=== PATIENT | female | born 1995 | race Caucasian/White ===

== ENCOUNTER 2016-12-02 15:26 | Observation (INO) | payer OTHER ==
[2016-12-02 16:31] LABS: Basophils % (A) 0 %; CH 31.2; CHCM 34.1; Eosinophils # (A) 0.1 k/uL (0-0.7); Eosinophils % (A) 1 %; HCT 41.8 % (34.0-46.0); HDW 2.15; HGB 13.9 gm/dL (11.4-16.0); Luc % (Auto) 2; Lymphocytes # (A) 2.2 k/uL (1.0-4.8); Lymphocytes % (A) 15 %; MCH 30.5 pg (25.0-35.0); MCHC 33.2 g/dL (31.0-37.0); MCV 91.8 fL (80.0-100.0); Mean Platelet Volume 7.7; Monocytes # (A) 0.8 k/uL (0-1.0); Monocytes % (A) 5 %; Neutrophils # (A) 11.6 k/uL (1.3-7.7); Neutrophils % (A) 77 %; RBC 4.55 m/uL (3.80-5.40); RDW 13.5 % (11.5-15.5); WBC 15.1 k/uL (3.8-10.6); WBC (Perox) 15.32
[2016-12-02 16:32] LABS: Appearance,Urine Cloudy (Clear); Bacteria,Urine Rare /hpf; Bilirubin,Urine Negative (Negative); Glucose,Urine (UA) Negative (Negative); Ketones,Urine Negative (Negative); Leukocyte Esterase,Urine Large (Negative); Mucus,Urine Rare /hpf; Nitrite,Urine Negative (Negative); Particle Count 9395; Protein,Urine Trace (Negative); RBC,Urine 1 /hpf (0-5); Specific Gravity,Urine 1.018 (1.001-1.035); Squamous Epithelial Cell,Urine 8 /hpf (0-4); UA Billing (MACRO vs. MICRO) MICRO; Urobilinogen,Urine <2.0 mg/dL (<2.0); WBC,Urine 9 /hpf (0-5)
[2016-12-02] MEDS ORDERED: IV VANCOMYCIN PER PHARMACY 1 EACH MISC MISCELLANE PRN (16:33)
[2016-12-02] MEDS ORDERED: KETOROLAC 30 MG/ML 1 ML VIAL IVP STA (16:34)
[2016-12-02 16:43] LABS: ALT 79 U/L (9-52); AST 47 U/L (14-36); Alkaline Phosphatase 79 U/L (38-126); Anion Gap 11 mmol/L; Blood Urea Nitrogen 12 mg/dL (7-17); Calcium 9.3 mg/dL (8.4-10.2); Carbon Dioxide 24 mmol/L (22-30); Chloride 106 mmol/L (98-107); Glucose 77 mg/dL (74-99); Non-African American GFR(MDRD) >60 (>60 ml/min/1.73 sqM); Potassium 4.3 mmol/L (3.5-5.1); Sodium 141 mmol/L (137-145); Total Bilirubin 0.9 mg/dL (0.2-1.3); Total Protein 7.8 g/dL (6.3-8.2)
[2016-12-02] MEDS ORDERED: VANCOMYCIN 1,500 MG in SODIUM CHLORIDE 0.9% 250 ML IVPB ONE (17:00)
[2016-12-02] MEDS ORDERED: ONDANSETRON 4 MG/2 ML VIAL IVP PRN (17:02)
[2016-12-02] MEDS ORDERED: NALOXONE 0.4 MG/ML 1 ML VIAL IV PRN (17:02)
[2016-12-02] MEDS ORDERED: MORPHINE SULFATE 4 MG/ML SYRINGE IV PRN (17:02)
[2016-12-02] MEDS ORDERED: KETOROLAC 30 MG/ML 1 ML VIAL IVP PRN (17:02)
--- NOTE | 2016-12-02 17:33 | XR ---
EXAMINATION TYPE: XR knee complete LT DATE OF EXAM: 12/02/2016 COMPARISON: NONE HISTORY: 21-year-old female left knee pain. Open wound, patient stated MRSA. TECHNIQUE: 3 views FINDINGS: There is some anterior soft tissue swelling noted. There may be some trace soft tissue swelling proje cting above the patella on the lateral view. No significant knee joint effusion identified. No acute fracture or dislocation. IMPRESSION: 1. No acute osseous abnormality seen. 2. Anterior soft tissue swelling and trace foci of soft tissue gas projecting above the patella. This could represent tracking air from the patient's open wound or infection with gas-forming organism. C linically correlate.
[2016-12-02] MEDS: DEXTROSE 5%-0.45% NACL 1,000 ML IV SCH (17:41)
--- NOTE | 2016-12-02 17:46 | ED ---
General Adult HPI - General Chief complaint: Skin/Abscess/Foreign Body Stated complaint: MERSA Time Seen by Provider: 12/02/16 15:44 Source: patient, RN notes reviewed Mode of arrival: ambulatory Limitations: no limitations - History of Present Illness Initial comments: 21-year-old female presents for evaluation of left knee pain and swelling. Patient had a small abscess on the anterior portion of her left knee that has been present for approximately 4-5 days. She was started on Bactrim by her family physician for this abscess. Patient states despite being on antibiotics the pain has worsened and she now has difficulty moving her left knee. There is also some associated erythema on the medial side of her knee which she did not notice prior to today. 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 She denies fever. Reports some subjective chills, denies chest pain shortness of breath, denies nausea vomiting or diarrhea. - Related Data Home Medications Medication Instructions Recorded Confirmed Sulfamethox-Tmp 800-160Mg [Bactrim 1 tab PO Q12HR 12/02/16 12/02/16 DS 800-160 mg] Allergies Allergy/AdvReac Type Severity Reaction Status Date / Time strawberry [[place]] Allergy Anaphylaxis Verified 12/02/16 15:36 Review of Systems ROS Statement: Those systems with pertinent positive or pertinent negative responses have been documented in the HPI. ROS Other: All systems not noted in ROS Statement are negative. Past Medical History Past Medical History: No Reported History Additional Past Medical History / Comment(s): ovarian cyst History of Any Multi-Drug Resistant Organisms: MRSA Date of last positivie culture/infection: 2008 MDRO Source:: left knee Past Surgical History: Orthopedic Surgery Past Anesthesia/Blood Transfusion Reactions: No Reported Reaction Past Psychological History: No Psychological Hx Reported Smoking Status: Never smoker Past Alcohol Use History: None Reported Past Drug Use History: None Reported - Past Family History Father Family Medical History: Hypertension General Exam Limitations: no limitations General appearance: in no apparent distress Head exam: Present: atraumatic, normocephalic Eye exam: Present: normal appearance, PERRL ENT exam: Present: normal exam, mucous membranes moist Neck exam: Present: normal inspection. Absent: tenderness, meningismus Respiratory exam: Present: normal lung sounds bilaterally. Absent: respiratory distress Cardiovascular Exam: Present: regular rate, normal rhythm GI/Abdominal exam: Present: soft. Absent: distended, tenderness Extremities exam: Present: normal capillary refill, other (Erythema on the medial side of the left knee, there is a small abscess which is to have drained on the anterior knee. Joint effusion is present, there is significant decreased range of motion secondary to pain left knee.) Course Vital Signs 12/02/16 15:29 Temperature 97.5 F L Pulse Rate 94 Respiratory 20 Rate Blood Pressure 125/64 O2 Sat by Pulse 98 Oximetry Procedures - Joint Aspiration/Injection Consent Obtained: verbal consent Time Out Performed: Yes Indications: R/O septic arthritis Side of Body: left Joint Aspirated: knee Ultrasound Guidance: No Skin Prep: sterile prep and drape Local Anesthesia Used: Lidocaine 1% Needle Size Used: 18G Syringe Size Used: 20cc Fluid Obtained: viscous Patient Tolerated Procedure: well Complications: other (Unable to obtain significant fluid for analysis) Medical Decision Making - Medical Decision Making 21-year-old female presents with left knee swelling and erythema, she does have a superficial abscess over this me, however there is significant pain on range of motion of left knee. She does have a history of septic arthritis. Joint aspiration was attempted to the emergency department. This was unsuccess unsuccessful. Patient had significant pain with the procedure. She was started on antibiotics including ceftriaxone and vancomycin. Case was discussed with orthopedic surgery. She will be admitted to internal medicine with orthopedic surgery on consult. Laboratory studies reveal an elevated white blood cell count of 15 X-ray of the left knee does show air above the patella, this is consistent with the location of her draining abscess. Diagnosis: left knee swelling rule out septic arthritis. - Lab Data Result diagrams: 12/02/16 16:14 12/02/16 16:14 Lab Results 12/02/16 12/02/16 12/02/16 Range/Units 16:14 16:14 16:14 WBC 15.1 H (3.8-10.6) k/uL RBC 4.55 (3.80-5.40) m/uL Hgb 13.9 (11.4-16.0) gm/dL Hct 41.8 (34.0-46.0) % MCV 91.8 (80.0-100.0) fL MCH 30.5 (25.0-35.0) pg MCHC 33.2 (31.0-37.0) g/dL RDW 13.5 (11.5-15.5) % Plt Count 281 (150-450) k/uL Neutrophils % 77 % Lymphocytes % 15 % Monocytes % 5 % Eosinophils % 1 % Basophils % 0 % Neutrophils # 11.6 H (1.3-7.7) k/uL Lymphocytes # 2.2 (1.0-4.8) k/uL Monocytes # 0.8 (0-1.0) k/uL Eosinophils # 0.1 (0-0.7) k/uL Basophils # 0.0 (0-0.2) k/uL Sodium 141 (137-145) mmol/L Potassium 4.3 (3.5-5.1) mmol/L Chloride 106 (98-107) mmol/L Carbon Dioxide 24 (22-30) mmol/L Anion Gap 11 mmol/L BUN 12 (7-17) mg/dL Creatinine 0.69 (0.52-1.04) mg/dL Est GFR (MDRD) Af Amer >60 (>60 ml/min/1.73 sqM) Est GFR (MDRD) Non-Af >60 (>60 ml/min/1.73 sqM) Glucose 77 (74-99) mg/dL Calcium 9.3 (8.4-10.2) mg/dL Total Bilirubin 0.9 (0.2-1.3) mg/dL AST 47 H (14-36) U/L ALT 79 H (9-52) U/L Alkaline Phosphatase 79 (38-126) U/L Total Protein 7.8 (6.3-8.2) g/dL Albumin 4.5 (3.5-5.0) g/dL Urine Color Urine Appearance (Clear) Urine pH (5.0-8.0) Ur Specific [place] (1.001-1.035) Urine Protein (Negative) Urine Glucose (UA) (Negative) Urine Ketones (Negative) Urine Blood (Negative) Urine Nitrite (Negative) Urine Bilirubin (Negative) Urine Urobilinogen (<2.0) mg/dL Ur Leukocyte Esterase (Negative) Urine RBC (0-5) /hpf Urine WBC (0-5) /hpf Ur Squamous Epith Cells (0-4) /hpf Urine Bacteria (None) /hpf Urine Mucus (None) /hpf Urine HCG, Qual Not Detected (Not Detectd) 12/02/16 Range/Units 16:14 WBC (3.8-10.6) k/uL RBC (3.80-5.40) m/uL Hgb (11.4-16.0) gm/dL Hct (34.0-46.0) % MCV (80.0-100.0) fL MCH (25.0-35.0) pg MCHC (31.0-37.0) g/dL RDW (11.5-15.5) % Plt Count (150-450) k/uL Neutrophils % % Lymphocytes % % Monocytes % % Eosinophils % % Basophils % % Neutrophils # (1.3-7.7) k/uL Lymphocytes # (1.0-4.8) k/uL Monocytes # (0-1.0) k/uL Eosinophils # (0-0.7) k/uL Basophils # (0-0.2) k/uL Sodium (137-145) mmol/L Potassium (3.5-5.1) mmol/L Chloride (98-107) mmol/L Carbon Dioxide (22-30) mmol/L Anion Gap mmol/L BUN (7-17) mg/dL Creatinine (0.52-1.04) mg/dL Est GFR (MDRD) Af Amer (>60 ml/min/1.73 sqM) Est GFR (MDRD) Non-Af (>60 ml/min/1.73 sqM) Glucose (74-99) mg/dL Calcium (8.4-10.2) mg/dL Total Bilirubin (0.2-1.3) mg/dL AST (14-36) U/L ALT (9-52) U/L Alkaline Phosphatase (38-126) U/L Total Protein (6.3-8.2) g/dL Albumin (3.5-5.0) g/dL Urine Color Yellow Urine Appearance Cloudy H (Clear) Urine pH 8.0 (5.0-8.0) Ur Specific [place] 1.018 (1.001-1.035) Urine Protein Trace H (Negative) Urine Glucose (UA) Negative (Negative) Urine Ketones Negative (Negative) Urine Blood Negative (Negative) Urine Nitrite Negative (Negative) Urine Bilirubin Negative (Negative) Urine Urobilinogen <2.0 (<2.0) mg/dL Ur Leukocyte Esterase Large H (Negative) Urine RBC 1 (0-5) /hpf Urine WBC 9 H (0-5) /hpf Ur Squamous Epith Cells 8 H (0-4) /hpf Urine Bacteria Rare H (None) /hpf Urine Mucus Rare H (None) /hpf Urine HCG, Qual (Not Detectd) Disposition Clinical Impression: Septic arthritis Disposition: ADMITTED IP TO THIS HOSP Condition: Stable Decision to Admit Reason: Admit from EC Decision Date: 12/02/16 Decision Time: 17:00
[2016-12-03] MEDS: VANCOMYCIN 1,250 MG in SODIUM CHLORIDE 0.9% 250 ML IVPB SCH ×3 (00:21→15:27)
[2016-12-03] MEDS: DEXTROSE 5%-0.45% NACL 1,000 ML IV SCH ×3 (04:16→23:30)
[2016-12-03 06:56] LABS: Basophils % (A) 0 %; CH 31.1; CHCM 33.4; Eosinophils # (A) 0.2 k/uL (0-0.7); Eosinophils % (A) 2 %; HCT 39.2 % (34.0-46.0); HDW 2.16; Luc # (Auto) 0.21; Luc % (Auto) 2; Lymphocytes # (A) 2.3 k/uL (1.0-4.8); Lymphocytes % (A) 24 %; MCH 31.1 pg (25.0-35.0); MCHC 33.3 g/dL (31.0-37.0); MCV 93.6 fL (80.0-100.0); Mean Platelet Volume 7.9; Monocytes # (A) 0.5 k/uL (0-1.0); Monocytes % (A) 5 %; Neutrophils # (A) 6.5 k/uL (1.3-7.7); Neutrophils % (A) 67 %; RBC 4.19 m/uL (3.80-5.40); RDW 13.3 % (11.5-15.5); WBC 9.8 k/uL (3.8-10.6); WBC (Perox) 9.59
[2016-12-03 07:07] LABS: Anion Gap 9 mmol/L; Blood Urea Nitrogen 14 mg/dL (7-17); Calcium 8.4 mg/dL (8.4-10.2); Carbon Dioxide 21 mmol/L (22-30); Chloride 111 mmol/L (98-107); Glucose 90 mg/dL (74-99); Non-African American GFR(MDRD) >60 (>60 ml/min/1.73 sqM); Potassium 3.9 mmol/L (3.5-5.1); Sodium 141 mmol/L (137-145)
--- NOTE | 2016-12-03 08:51 | P.CNOR ---
History of Present Illness - [facility] Consult date: 12/03/16 Requesting physician: Dmitri Song Consult reason: joint pain (Septic arthritis of the left knee) History of present illness: Patient is a very pleasant 21-year-old female who is seen and examined at the bedside for further evaluation after we were consulted for left knee pain and swelling that the ER thought could represent a septic left knee. Patient does have a history of previous left knee septic joint and history of MRSA infection of the left knee. Emergency department aspiration of the joint was attempted without success. Patient was subsequently admitted and started on IV antibiotics including vancomycin and ceftriaxone. Since that time, patient had significant improvement of her left knee symptoms. She states this past Saturday and Saturday she started experiencing left knee swelling, redness, and pain. Over the course of next several days her symptoms worsened until she presented to the emergency department yesterday. She states since being started on IV antibiotics her left knee symptoms have almost returned to her baseline. She is not currently experiencing any significant knee pain, swelling, or erythema. She is active full range of motion left knee without difficulty. At this time she does not feel she needs any further treatment for her left knee. She has no new complaints. Patient currently denies any nausea, vomiting, fever, or chills. Past Medical History Past Medical History: No Reported History Additional Past Medical History / Comment(s): ovarian cyst History of Any Multi-Drug Resistant Organisms: MRSA Year Discovered:: 2008 MDRO Source:: left knee Past Surgical History: Orthopedic Surgery Additional Past Surgical History / Comment(s): Left knee Past Anesthesia/Blood Transfusion Reactions: No Reported Reaction Past Psychological History: No Psychological Hx Reported Smoking Status: Current every day smoker Past Alcohol Use History: Occasional Past Drug Use History: None Reported - Past Family History Father Family Medical History: Hyperlipidemia, Hypertension Mother Family Medical History: No Reported History Medications and Allergies Home Medications Medication Instructions Recorded Confirmed Type Sulfamethox-Tmp 800-160Mg [Bactrim 1 tab PO Q12HR 12/02/16 12/02/16 History DS 800-160 mg] Allergies Allergy/AdvReac Type Severity Reaction Status Date / Time strawberry [[place]] Allergy Anaphylaxis Verified 12/02/16 20:53 Physical Examination Physical Exam: Patient is awake, alert, and oriented 3 Vital signs stable Good chest excursion with deep inspiration and expiration Abdomen soft nontender No signs or symptoms of DVT; no calf pain Examination of the left knee shows no obvious sign of significant swelling, erythema, or obvious sign of infection There is a small healing puncture wound from [place] in the emergency department the does have some erythema around this wound No significant pain to palpation of the left lower thigh, knee, calf, foot, or toes Adequate for range of motion of the entire left lower extremity without significant difficulty Results Pertinent studies: X-ray of the left knee taken on 12/02/2016: No acute osseous abnormality seen; anterior soft tissue swelling and trace foci of soft tissue gas projecting above the patella could her present tracking for the patient's open wound or infection with gas forming organism - Labs Labs: Abnormal Lab Results - Last 24 Hours (Table) 12/02/16 12/02/16 12/02/16 Range/Units 16:14 16:14 16:14 WBC 15.1 H (3.8-10.6) k/uL Neutrophils # 11.6 H (1.3-7.7) k/uL Chloride (98-107) mmol/L Carbon Dioxide (22-30) mmol/L AST 47 H (14-36) U/L ALT 79 H (9-52) U/L Urine Appearance Cloudy H (Clear) Urine Protein Trace H (Negative) Ur Leukocyte Esterase Large H (Negative) Urine WBC 9 H (0-5) /hpf Ur Squamous Epith Cells 8 H (0-4) /hpf Urine Bacteria Rare H (None) /hpf Urine Mucus Rare H (None) /hpf 12/03/16 Range/Units 06:36 WBC (3.8-10.6) k/uL Neutrophils # (1.3-7.7) k/uL Chloride 111 H (98-107) mmol/L Carbon Dioxide 21 L (22-30) mmol/L AST (14-36) U/L ALT (9-52) U/L Urine Appearance (Clear) Urine Protein (Negative) Ur Leukocyte Esterase (Negative) Urine WBC (0-5) /hpf Ur Squamous Epith Cells (0-4) /hpf Urine Bacteria (None) /hpf Urine Mucus (None) /hpf H & H 12/02/16 12/03/16 Range/Units 16:14 06:36 Hgb 13.9 13.0 (11.4-16.0) gm/dL Hct 41.8 39.2 (34.0-46.0) % Result Diagrams: 12/03/16 06:36 12/03/16 06:36 Assessment and Plan (1) Knee pain, left Status: Acute (2) Septic arthritis Status: Acute Plan: Assessment: Left knee pain and swelling Septic arthritis of the left knee Plan: 1. After reviewing imaging, further evaluation of the patient, and discussed with the patient, we're not currently planning for any surgical intervention or other imaging modalities in terms of the patient's left knee. At presentation to the emergency department she had significant left knee pain, erythema, and swelling at which time emergency department felt she may have septic arthritis in the left knee. Following admittance and start an IV antibiotic medication, these symptoms have dramatically improved. She is not currently experiencing significant swelling, erythema, warmth, or pain at the left knee. She has active full range of motion left knee without significant difficulty. She has no pain with palpation of the left knee. She is afebrile. She is not currently experiencing nausea, vomiting, or chills. At this time, we discussed we'll continue with conservative treatment. She may continue with IV antibiotic regimen as set forth by medicine and the emergency department. From an orthopedic standpoint, we'll currently plan to sign off on the patient and she will be clear for discharge. We will plan to have the patient follow-up in the outpatient setting approximately 1 week for reevaluation. 2. Medicine to continue following the patient 3. From an orthopedic standpoint, patient is cleared for discharge. Patient may follow-up with Jefe Renteria PA-C or Dr. Ga Lancaster at [facility] in approximately 1 week for further evaluation 4. I will discuss this patient in detail with Dr. Ga Lancaster Time with Patient: Less than 30
--- NOTE | 2016-12-03 11:19 | P.HPIM ---
History of Present Illness H&P Date: 12/03/16 Chief Complaint: Left knee swelling and pain This is a 21-year-old female who presents to the emergency room with worsening left knee pain and swelling. Patient said that her symptoms started approximately a week ago with a lump on her left knee that was treated by her primary care physician with Bactrim. Apparently her symptoms continued to get worse despite antibiotic treatment and the redness and swelling worsen so she decided to come to the emergency room. In the emergency room patient was evaluated and was admitted to the hospital with suspected septic arthritis. 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 She was started on broad-spectrum antibiotic and apparently her symptoms improved significantly. Today, her knee appeared completely normal to me. She has full range of motion. She was seen and evaluated by orthopedic surgery and was cleared for discharge. She had one set of blood culture positive for gram-positive bacilli that is most likely contamination. I would obtain 2 sets of blood culture today. I will consult infectious disease for further recommendations. Review of Systems Review of system: 14 points review of systems were obtained and were negative except to what were mentioned in the HPI. Past Medical History Past Medical History: No Reported History Additional Past Medical History / Comment(s): ovarian cyst History of Any Multi-Drug Resistant Organisms: MRSA Date of last positivie culture/infection: 2008 MDRO Source:: left knee Past Surgical History: Orthopedic Surgery Additional Past Surgical History / Comment(s): Left knee Past Anesthesia/Blood Transfusion Reactions: No Reported Reaction Past Psychological History: No Psychological Hx Reported Smoking Status: Current every day smoker Past Alcohol Use History: Occasional Past Drug Use History: None Reported - Past Family History Father Family Medical History: Hyperlipidemia, Hypertension Mother Family Medical History: No Reported History Medications and Allergies Home Medications Medication Instructions Recorded Confirmed Type Sulfamethox-Tmp 800-160Mg [Bactrim 1 tab PO Q12HR 12/02/16 12/02/16 History DS 800-160 mg] Allergies Allergy/AdvReac Type Severity Reaction Status Date / Time strawberry [[place]] Allergy Anaphylaxis Verified 12/02/16 20:53 Physical Exam Vitals: Vital Signs Temp Pulse Pulse Resp BP BP Pulse Ox 12/03/16 08:00 97.9 F 70 16 111/58 98 12/03/16 01:57 98.3 F 73 16 93/46 97 12/02/16 19:33 98.0 F 82 16 112/59 98 12/02/16 18:24 98 F 85 18 106/63 97 12/02/16 17:42 78 18 108/56 100 12/02/16 15:29 97.5 F L 94 20 125/64 98 Intake and Output 12/02/16 12/03/16 12/03/16 22:59 06:59 14:59 Intake Total 800 800 Balance 800 800 Intake: Intake, IV Titration 550 800 Amount Dextrose 5%-0.45% NaCl 1, 300 550 000 ml @ 100 mls/hr IV . Q10H MARGARET Rx#:[id number] Vancomycin 1,250 mg In 250 Sodium Chloride 0.9% 250 ml @ 125 mls/hr IVPB Q8H MARGARET Rx#:[id number] Vancomycin 1,500 mg In 250 Sodium Chloride 0.9% 250 ml @ 125 mls/hr IVPB ONCE ONE Rx#:[id number] Oral 250 Other: # Voids 4 Weight 63.049 kg General: The patient is awake and alert, in no distress Eye: there is normal conjunctiva bilaterally. Neck: The neck is supple, there is no JVD. Cardiovascular: Normal S1-S2, no S3-S4, no murmurs. Respiratory: Lungs clear to auscultation bilaterally Gastrointestinal: Abdomen is soft, nontender Musculoskeletal: There is no pedal edema. Neurological:. Speech is normal. Skin: Skin is warm and dry Results CBC & Chem 7: 12/03/16 06:36 12/03/16 06:36 Labs: Abnormal Lab Results - Last 24 Hours (Table) 12/02/16 12/02/16 12/02/16 Range/Units 16:14 16:14 16:14 WBC 15.1 H (3.8-10.6) k/uL Neutrophils # 11.6 H (1.3-7.7) k/uL Chloride (98-107) mmol/L Carbon Dioxide (22-30) mmol/L AST 47 H (14-36) U/L ALT 79 H (9-52) U/L Urine Appearance Cloudy H (Clear) Urine Protein Trace H (Negative) Ur Leukocyte Esterase Large H (Negative) Urine WBC 9 H (0-5) /hpf Ur Squamous Epith Cells 8 H (0-4) /hpf Urine Bacteria Rare H (None) /hpf Urine Mucus Rare H (None) /hpf 12/03/16 Range/Units 06:36 WBC (3.8-10.6) k/uL Neutrophils # (1.3-7.7) k/uL Chloride 111 H (98-107) mmol/L Carbon Dioxide 21 L (22-30) mmol/L AST (14-36) U/L ALT (9-52) U/L Urine Appearance (Clear) Urine Protein (Negative) Ur Leukocyte Esterase (Negative) Urine WBC (0-5) /hpf Ur Squamous Epith Cells (0-4) /hpf Urine Bacteria (None) /hpf Urine Mucus (None) /hpf Microbiology - Last 24 Hours (Table) 12/02/16 16:14 Blood Culture Gram Stain - Preliminary Blood 12/02/16 16:14 Blood Culture - Final Blood Thrombosis Risk Factor Assmnt - Choose All That Apply Any of the Below Risk Factors Present?: Yes Each Factor Represents 1 point: Swollen legs (current) Other Risk Factors: No Thrombosis Risk Factor Assessment Total Risk Factor Score: 1 Thrombosis Risk Factor Assessment Level: Low Risk Assessment and Plan Plan: 1. Cellulitis of the left knee 2. Bacteremia with gram-positive bacillary possibly contamination. Awaiting repeat blood culture. Continue broad spectrum antibiotic. Consult infectious disease for further recommendations. Today, I reviewed her medication list and lab work results. Continue current regimen area that this be discharged home within the next day or 2.
--- NOTE | 2016-12-03 20:30 | P.CONS ---
History of Present Illness - Reason for Consult Consult date: 12/03/16 - Chief Complaint Pain left knee - History of Present Illness Pleasant 21-year-old female who relates to history of prior MRSA abscess of the anterior aspect of the left knee presents the emergency center with sudden onset of increasing severe pain to her left knee. The patient relates she developed a pustule on the knee. He become much more swollen painful and erythematous. She was seen in the outpatient setting was thought to have MRSA. She relates she was treated with Bactrim. Despite this she had marked worsening to the pain and swelling of the knee. She has severe pain upon any attempts for range of motion. Because of this she did present to hospital. She's been seen by orthopedics. Aspiration of joint was attempted but was a dry tap. Subsequently the area spontaneously opened and drained and the patient now has near resolution of her symptoms. Pain and swelling have improved. She's able to ambulate. She is denying significant fevers, chills or rigors. Review of Systems HEENT:Denies headache or acute visual change. Denies sinus or mouth discomforts. Denies neck stiffness or pain. Denies significant oral cavity pain. Denies difficulty on swallowing. Lungs: Denies significant shortness of breath, cough, sputum production, or hemoptysis. Cardiovascular: Denies significant shortness of breath, chest pain, chest wall pain, orthopnea, dyspnea on exertion, syncope Gastrointestinal:Denies nausea, vomiting, diarrhea, constipation, hematemesis, melena, hematochezia. No no significant change of bowel habit noticed. Musculoskeletal: Per the HPI Skin: Denies new rash or lesions. No new ulcers or wounds are related.. Neuro: Denies headache or visual change. Denies any new onset weakness or difficulty with ambulation. Denies falls or seizures. Psychiatric:Denies anxiety or depression. Endocrine: Denies significant fatigue, denies significant weight loss or weight gain. Past Medical History Past Medical History: No Reported History Additional Past Medical History / Comment(s): ovarian cyst History of Any Multi-Drug Resistant Organisms: MRSA Year Discovered:: 2008 MDRO Source:: left knee Past Surgical History: Orthopedic Surgery Additional Past Surgical History / Comment(s): Left knee Past Anesthesia/Blood Transfusion Reactions: No Reported Reaction Past Psychological History: No Psychological Hx Reported Additional Psychological History / Comment(s): Single mother of 2 ages 1 and 3. Tobacco smoker. 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 No international travel. experience. No animals in the home Smoking Status: Current every day smoker Past Alcohol Use History: Occasional Past Drug Use History: None Reported - Past Family History Father Family Medical History: Hyperlipidemia, Hypertension Mother Family Medical History: No Reported History Medications and Allergies Home Medications and Allergies Comment(s): Current Medications Ceftriaxone Sodium 1,000 mg/ (Sodium Chloride) 50 mls @ 100 mls/hr IVPB Q24HR [facility] Last Admin: 12/03/16 07:59 Dose: 100 mls/hr Dextrose/Sodium Chloride (Dextrose 5%-1/2ns Iv Soln) 1,000 mls @ 100 mls/hr IV .Q10H [facility] Last Admin: 12/03/16 15:26 Dose: 100 mls/hr Vancomycin HCl 1,250 mg/ (Sodium Chloride) 250 mls @ 125 mls/hr IVPB Q8H [facility] Last Admin: 12/03/16 15:27 Dose: 125 mls/hr Ketorolac Tromethamine (Toradol) 30 mg IVP Q6HR PRN PRN Reason: Moderate Pain Stop: 12/07/16 17:03 Miscellaneous Information (Vancomycin Trough Due) 0 each MISCELLANE DIRECTED ONE Stop: 12/04/16 07:01 Morphine Sulfate (Morphine Sulfate (Inj)) 4 mg IV Q4HR PRN PRN Reason: Severe Pain Naloxone HCl (Narcan) 0.2 mg IV Q2M PRN PRN Reason: Opioid Reversal Ondansetron HCl (Zofran) 4 mg IVP Q8HR PRN PRN Reason: Nausea And Vomiting Home Medications Medication Instructions Recorded Confirmed Type Sulfamethox-Tmp 800-160Mg [Bactrim 1 tab PO Q12HR 12/02/16 12/02/16 History DS 800-160 mg] Allergies Allergy/AdvReac Type Severity Reaction Status Date / Time strawberry [[place]] Allergy Anaphylaxis Verified 12/02/16 20:53 Physical Exam Vitals: Vital Signs Temp Pulse Resp BP Pulse Ox 12/03/16 13:53 97.8 F 72 16 91/50 93 L 12/03/16 08:00 97.9 F 70 16 111/58 98 12/03/16 01:57 98.3 F 73 16 93/46 97 Intake and Output 12/03/16 12/03/16 12/03/16 06:59 14:59 22:59 Intake Total 800 480 480 Balance 800 480 480 Intake: Intake, IV Titration 800 Amount Dextrose 5%-0.45% NaCl 1, 550 000 ml @ 100 mls/hr IV . Q10H [facility] Rx#:[id number] Vancomycin 1,500 mg In 250 Sodium Chloride 0.9% 250 ml @ 125 mls/hr IVPB ONCE ONE Rx#:[id number] Oral 480 480 Other: # Voids 4 Pleasant 21-year-old female who is quite comfortable at this time HEENT: Anicteric conjunctiva are pink and moist nasal mucosa grossly intact without significant lesions, there is no thrush. Neck: The neck is supple without significant lymphadenopathy or thyromegaly. Lungs: Good bilateral air entry without significant crackles or wheezing. There is no significant bronchial sounds. There is no egophony or dullness. Heart: Regular rate and rhythm with an audible S1-S2, no S3 no S4. There is no significant murmur click or rub, PMI was nondisplaced. Abdomen: Positive bowel sounds soft and nontender without palpable masses or organomegaly. There was no guarding or rebound. Extremities: The upper extremities have excellent pulses they are symmetric, no significant petechiae or telangiectasia. No splinter hemorrhages were noted. The right lower extremity has no lesions. The left lower extremity reveals that the knee site of the pustule that has now drained. There is no further expressible drainage. The patient relates that it was very large and swollen this is now improved since it has spontaneously drained. There is some minimal surrounding erythema. There is no expressible purulence and manipulation is not tender. She has full range of motion of the knee. No other skin lesions are seen. No abnormal lymph nodes are noted inguinal area or epitrochlear axillary Neuro: Awake alert oriented to person place and time. There are no acute new gross focal sensory motor deficits. Results CBC & Chem 7: 12/03/16 06:36 12/03/16 06:36 Labs: Abnormal Lab Results - Last 24 Hours (Table) 12/03/16 Range/Units 06:36 Chloride 111 H (98-107) mmol/L Carbon Dioxide 21 L (22-30) mmol/L Microbiology - Last 24 Hours (Table) 12/02/16 16:14 Blood Culture Gram Stain - Preliminary Blood 12/02/16 16:14 Blood Culture - Final Blood Laboratory Results WBC 9.8 k/uL (3.8-10.6) 12/03/16 06:36 RBC 4.19 m/uL (3.80-5.40) 12/03/16 06:36 Hgb 13.0 gm/dL (11.4-16.0) 12/03/16 06:36 Hct 39.2 % (34.0-46.0) 12/03/16 06:36 MCV 93.6 fL (80.0-100.0) 12/03/16 06:36 MCH 31.1 pg (25.0-35.0) 12/03/16 06:36 MCHC 33.3 g/dL (31.0-37.0) 12/03/16 06:36 RDW 13.3 % (11.5-15.5) 12/03/16 06:36 Plt Count 214 k/uL (150-450) 12/03/16 06:36 Neutrophils % 67 % 12/03/16 06:36 Lymphocytes % 24 % 12/03/16 06:36 Monocytes % 5 % 12/03/16 06:36 Eosinophils % 2 % 12/03/16 06:36 Basophils % 0 % 12/03/16 06:36 Neutrophils # 6.5 k/uL (1.3-7.7) 12/03/16 06:36 Lymphocytes # 2.3 k/uL (1.0-4.8) 12/03/16 06:36 Monocytes # 0.5 k/uL (0-1.0) 12/03/16 06:36 Eosinophils # 0.2 k/uL (0-0.7) 12/03/16 06:36 Basophils # 0.0 k/uL (0-0.2) 12/03/16 06:36 Sodium 141 mmol/L (137-145) 12/03/16 06:36 Potassium 3.9 mmol/L (3.5-5.1) 12/03/16 06:36 Chloride 111 mmol/L (98-107) H 12/03/16 06:36 Carbon Dioxide 21 mmol/L (22-30) L 12/03/16 06:36 Anion Gap 9 mmol/L 12/03/16 06:36 BUN 14 mg/dL (7-17) 12/03/16 06:36 Creatinine 0.67 mg/dL (0.52-1.04) 12/03/16 06:36 Est GFR (MDRD) Af Amer >60 (>60 ml/min/1.73 sqM) 12/03/16 06:36 Est GFR (MDRD) Non-Af >60 (>60 ml/min/1.73 sqM) 12/03/16 06:36 Glucose 90 mg/dL (74-99) 12/03/16 06:36 Calcium 8.4 mg/dL (8.4-10.2) 12/03/16 06:36 Total Bilirubin 0.9 mg/dL (0.2-1.3) 12/02/16 16:14 AST 47 U/L (14-36) H 12/02/16 16:14 ALT 79 U/L (9-52) H 12/02/16 16:14 Alkaline Phosphatase 79 U/L (38-126) 12/02/16 16:14 Total Protein 7.8 g/dL (6.3-8.2) 12/02/16 16:14 Albumin 4.5 g/dL (3.5-5.0) 12/02/16 16:14 Urine Color Yellow 12/02/16 16:14 Urine Appearance Cloudy (Clear) H 12/02/16 16:14 Urine pH 8.0 (5.0-8.0) 12/02/16 16:14 Ur Specific [place] 1.018 (1.001-1.035) 12/02/16 16:14 Urine Protein Trace (Negative) H 12/02/16 16:14 Urine Glucose (UA) Negative (Negative) 12/02/16 16:14 Urine Ketones Negative (Negative) 12/02/16 16:14 Urine Blood Negative (Negative) 12/02/16 16:14 Urine Nitrite Negative (Negative) 12/02/16 16:14 Urine Bilirubin Negative (Negative) 12/02/16 16:14 Urine Urobilinogen <2.0 mg/dL (<2.0) 12/02/16 16:14 Ur Leukocyte Esterase Large (Negative) H 12/02/16 16:14 Urine RBC 1 /hpf (0-5) 12/02/16 16:14 Urine WBC 9 /hpf (0-5) H 12/02/16 16:14 Ur Squamous Epith Cells 8 /hpf (0-4) H 12/02/16 16:14 Urine Bacteria Rare /hpf (None) H 12/02/16 16:14 Urine Mucus Rare /hpf (None) H 12/02/16 16:14 Urine HCG, Qual Not Detected (Not Detectd) 12/02/16 16:14 Microbiology 12/02/16 16:14 Blood Blood Culture Gram Stain - Preliminary 12/02/16 16:14 Blood Blood Culture - Final Assessment and Plan (1) MRSA (methicillin resistant Staphylococcus aureus) infection Narrative/Plan: Pleasant 21-year-old woman presents to hospital with increasing pain and swelling to the left knee anterior surface. She has a prior history of an abscess to her left knee that did require a surgical incision and drainage. Because the significant pain and difficulty with ambulation she was concerned and presented. She had been cared for in the outpatient setting and was on Bactrim without resolution of the infection. However she's now had spontaneous drainage and feels considerably better. However to admission she had a significant leukocytosis and cultures were obtained. The blood cultures from the emergency center showing evidence of gram-positive bacilli. At this time this is highly likely to be contamination with corynebacterium and will not need ongoing intravenous antibiotic therapy. This data should be ready in the morning. Check she has had a significant and rapid response to the drainage and then antibiotic therapy. With a history of MRSA would complete her course of Bactrim at home. Local wound care with mupirocin as indicated. Status: Acute (2) Abscess of left knee Status: Acute (3) Leukocytosis Status: Acute
[2016-12-04 01:26] VITALS: PULSE 76
[2016-12-04] MEDS ORDERED: VANCOMYCIN TROUGH DUE 1 EACH MISC MISCELLANE ONE (07:00)
[2016-12-04 07:42] LABS: Anion Gap 9 mmol/L; Blood Urea Nitrogen 12 mg/dL (7-17); Calcium 8.5 mg/dL (8.4-10.2); Carbon Dioxide 19 mmol/L (22-30); Chloride 112 mmol/L (98-107); Glucose 99 mg/dL (74-99); Non-African American GFR(MDRD) >60 (>60 ml/min/1.73 sqM); Potassium 3.9 mmol/L (3.5-5.1); Sodium 140 mmol/L (137-145)
[2016-12-04 08:45] VITALS: BP 109/57; RESP 14; TEMP 97.8
--- NOTE | 2016-12-04 08:47 | P.PN ---
Progress Note - Text Patient is a very pleasant 21-year-old female who is seen and examined at bedside for follow-up evaluation of her left knee. Cultures taken emergency department did show evidence of gram-positive bacilli. Patient is being seen and examined by Dr. Figueroa in infectious disease. We were initially consulted for possible septic arthritis of the left knee. Since this admittance, she has continued to have significant improvement of her symptoms. She is not currently experiencing any significant left knee pain, swelling, warmth, or erythema. She continues to have a little bit of redness around the wound puncture site from attempted aspiration site in the Emergency department. Her leukocytosis has improved. Her current WBC is 9.8. She has no new complaints this morning and is hoping to be discharged home soon. She has been able to ambulate without difficulty. She denies any nausea, vomiting, fever, or chills. Physical Exam: Patient is awake, alert, and oriented 3 Vital signs stable Good chest excursion with deep inspiration and expiration Abdomen soft nontender No signs or symptoms of DVT; no calf pain Examination of the left knee shows no obvious sign of significant swelling, erythema, or obvious sign of infection There is a small healing puncture wound from needlestick in the emergency department the does have some erythema around this wound No significant pain to palpation of the left lower thigh, knee, calf, foot, or toes Adequate for range of motion of the entire left lower extremity without significant difficulty Assessment: Left knee pain and swelling Gram-positive bacilli Abscess left knee Plan: 1. Patient is seen at the bedside for follow-up evaluation. We are not currently planning to change our plan of care. After reviewing imaging, further evaluation of the patient, and discussed with the patient, we're not currently planning for any surgical intervention or other imaging modalities in terms of the patient's left knee. At presentation to the emergency department she had significant left knee pain, erythema, and swelling at which time emergency department felt she may have septic arthritis in the left knee. Following admittance and start an IV antibiotic medication, these symptoms have dramatically improved. She is not currently experiencing significant swelling, erythema, warmth, or pain at the left knee. She has active full range of motion left knee without significant difficulty. She has no pain with palpation of the left knee. She is afebrile. She is not currently experiencing nausea, vomiting, or chills. At this time, we discussed we'll continue with conservative treatment. She may continue with IV antibiotic regimen as set forth by medicine, the emergency department, and Dr. Figueroa in infectious disease. From an orthopedic standpoint, we'll currently plan to sign off on the patient and she will be clear for discharge. We will plan to have the patient follow-up in the outpatient setting approximately 1 week for reevaluation. 2. Medicine to continue following the patient 3. Dr. Figueroa in infectious disease to continue following the patient 4. From an orthopedic standpoint, patient is cleared for discharge. Patient may follow-up with Jefe Renteria PA-C or Dr. Ga Lancaster at [facility] in approximately 1 week for further evaluation 5. I have discussed this patient in detail with Dr. Ga Lancaster and he agrees with this plan
[2016-12-04] MEDS: VANCOMYCIN 1,250 MG in SODIUM CHLORIDE 0.9% 250 ML IVPB SCH ×3 (09:39)
[2016-12-04] MEDS: DEXTROSE 5%-0.45% NACL 1,000 ML IV SCH (12:48)
--- NOTE | 2016-12-04 13:57 | P.DS ---
Providers Date of admission: 12/02/16 17:02 Expected date of discharge: 12/04/16 Attending physician: Fredi Hill Consults: 12/02/16 17:03 Consult Physician Urgent Consulting Provider: Falguni Lancaster Consult Reason/Comments: Left knee effusion, rule out septic arthritis Do you want consulting provider notified?: Yes, Notify in am 12/03/16 10:43 Consult Physician Urgent Consulting Provider: Dann Figueroa Consult Reason/Comments: Positive blood culture Do you want consulting provider notified?: Yes Primary care physician: Clarisse Avendano [facility] Course: This is a 21-year-old female who presents to the emergency room with worsening left knee pain and swelling. Patient said that her symptoms started approximately a week ago with a lump on her left knee that was treated by her primary care physician with Bactrim. Apparently her symptoms continued to get worse despite antibiotic treatment and the redness and swelling worsen so she decided to come to the emergency room. In the emergency room patient was evaluated and was admitted to the hospital with suspected septic arthritis. 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 She was started on broad-spectrum antibiotic and apparently her symptoms improved significantly. Today, her knee appeared completely normal to me. She has full range of motion. She was seen and evaluated by orthopedic surgery and was cleared for discharge. She had one set of blood cultures also positive for gram positives bacilli that was thought to be contamination. She was seen and evaluated by infectious disease. Will be discharged home in a stable condition. Patient the course of Bactrim. Follow-up with primary care physician. Patient Condition at Discharge: Stable Plan - Discharge Summary New Discharge Prescriptions: No Action Sulfamethox-Tmp 800-160Mg [Bactrim DS 800-160 mg] 1 tab PO Q12HR Discharge Medication List Sulfamethox-Tmp 800-160Mg [Bactrim DS 800-160 mg] 1 tab PO Q12HR 12/02/16 [ History] Follow up Appointment(s)/Referral(s): Clarisse Avendano DO [Primary Care Provider] - 1 Week Activity/Diet/Wound Care/Special Instructions: Patient to complete Bactrim script that she already has at home. Discharge Disposition: HOME SELF-CARE
== END 2016-12-04 14:20 | disposition home or self-care (01) ==
LOC: EC 15:26 → 3SUR 17:02 → INTOOBSV 17:02
PROVIDERS: ADMIT Internal Medicine; ATTEND Internal Medicine
DX: M00.062 Staphylococcal arthritis, left knee (principal); L02.416 Cutaneous abscess of left lower limb; L03.116 Cellulitis of left lower limb; B95.62 Methicillin resistant Staphylococcus aureus infection as the cause of diseases classified elsewhere; F17.200 Nicotine dependence, unspecified, uncomplicated; Z82.49 Family history of ischemic heart disease and other diseases of the circulatory system
CPT/HCPCS: 20610; 96360; 96365; 96375; 99284; 36415; 80053; 80048 ×2; 85025 ×2; 80202; 81001; 81025; 87040 ×2; 87077; 87186; 73562; G0378 ×3; J3370 ×3; J0696 ×2; J1885

== ENCOUNTER 2019-10-26 16:52 | Inpatient (IN) | payer MEDICAID, OTHER ==
--- NOTE | 2019-10-26 17:22 | ED ---
General Adult HPI - General Chief complaint: Psychiatric Symptoms Stated complaint: Mental health Time Seen by Provider: 10/26/19 17:00 Source: patient Mode of arrival: ambulatory Limitations: no limitations - History of Present Illness Initial comments: Dictation was produced using [employer] dictation software. please excuse any grammatical, word or spelling errors. This patient was cared for during a federal and state declared state of emergency secondary to Covid 19 Chief Complaint: 23-year-old female told by her PCP to come to the emergency Department for suicidal ideation. History of Present Illness: Patient 23-year-old female she suffers from bipolar disease and depression. Patient states in the last several days she's been struggling with suicidal ideation. She does have a planned however is not telling me what her plan specifically is. She does not have any homicidal ideation. No visual auditory hallucinations. Patient does not have any medical complaints. No pain. No dyspnea or lightheadedness. She admitted to the nurse that she thinks she wants to overdose. The ROS documented in this emergency department record has been reviewed and confirmed by me. Those systems with pertinent positive or negative responses have been documented in the HPI. All other systems are other negative and/or noncontributory. PHYSICAL EXAM: General Impression: Alert and oriented x3, not in acute distress HEENT: Normocephalic atraumatic, extra-ocular movements intact, pupils equal and reactive to light bilaterally, mucous membranes moist. Cardiovascular: Heart regular rate and rhythm Chest: Able to complete full sentences, no retractions, no tachypnea Abdomen: abdomen soft, non-tender, non-distended, no organomegaly Musculoskeletal: Pulses present and equal in all extremities, no peripheral edema Motor: no focal deficits noted Neurological: CN II-XII grossly intact, no focal motor or sensory deficits noted Skin: Intact with no visualized rashes Psych: Flat affect ED course: 23-year-old female presents with suicidal ideation. She has has medical history of bipolar disease. Upon arrival are within acceptable limits. Patient medically cleared for EPS evaluation. Patient evaluated by EPS. Patient be admitted to inpatient psychiatry. - Related Data Home Medications Medication Instructions Recorded Confirmed Sulfamethox-Tmp 800-160Mg [Bactrim 1 tab PO Q12HR 12/02/16 12/02/16 DS 800-160 mg] Allergies Allergy/AdvReac Type Severity Reaction Status Date / Time strawberry [[place]] Allergy Anaphylaxis Verified 10/26/19 16:59 Review of Systems ROS Statement: Those systems with pertinent positive or pertinent negative responses have been documented in the HPI. ROS Other: All systems not noted in ROS Statement are negative. Past Medical History Past Medical History: No Reported History Additional Past Medical History / Comment(s): ovarian cyst History of Any Multi-Drug Resistant Organisms: MRSA Date of last positivie culture/infection: 2008 MDRO Source:: left knee Past Surgical History: Orthopedic Surgery Additional Past Surgical History / Comment(s): Left knee Past Anesthesia/Blood Transfusion Reactions: No Reported Reaction Past Psychological History: Bipolar, Depression Smoking Status: Current every day smoker Past Alcohol Use History: Occasional, Rare Past Drug Use History: None Reported - Past Family History Father Family Medical History: Hyperlipidemia, Hypertension Mother Family Medical History: No Reported History General Exam Limitations: no limitations Course Vital Signs 10/26/19 17:00 Temperature 98.5 F Pulse Rate 93 Respiratory 18 Rate Blood Pressure 138/73 O2 Sat by Pulse 100 Oximetry Medical Decision Making - Lab Data Lab Results 10/26/19 10/26/19 Range/Units 17:44 17:44 Urine HCG, Qual Not Detected (Not Detectd) Urine Opiates Screen Not Detected (NotDetected) Ur Oxycodone Screen Not Detected (NotDetected) Urine Methadone Screen Not Detected (NotDetected) Ur Propoxyphene Screen Not Detected (NotDetected) Ur Barbiturates Screen Not Detected (NotDetected) U Tricyclic Antidepress Not Detected (NotDetected) Ur Phencyclidine Scrn Not Detected (NotDetected) Ur Amphetamines Screen Not Detected (NotDetected) U Methamphetamines Scrn Not Detected (NotDetected) U Benzodiazepines Scrn Not Detected (NotDetected) Urine Cocaine Screen Not Detected (NotDetected) U Marijuana (THC) Screen Not Detected (NotDetected) Disposition Clinical Impression: Suicidal behavior Disposition: ADMITTED IP TO THIS [facility] Condition: Fair Referrals: Clarisse Avendano DO [Primary Care Provider] - 1-2 days Decision Time: 19:17
[2019-10-26 18:21] LABS: Amphetamine Screen,Urine Not Detected (NotDetected); Barbiturate Screen,Urine Not Detected (NotDetected); Benzodiazepines Screen,Urine Not Detected (NotDetected); Cocaine Screen,Urine Not Detected (NotDetected); Methadone Screen, Urine Not Detected (NotDetected); Opiate Screen,Urine Not Detected (NotDetected); Oxycodone Screen, Urine Not Detected (NotDetected); Phencyclidine Screen,Urine Not Detected (NotDetected); Tricyclic Antidepressant,Urine Not Detected (NotDetected); Urn Cannabinoid Scrn Not Detected (NotDetected)
[2019-10-26] MEDS ORDERED: ZIPRASIDONE 20 MG VIAL IM PRN (20:47)
[2019-10-26] MEDS ORDERED: MAGNESIUM HYDROXIDE 2,400 MG/10 ML CUP PO PRN (20:47)
[2019-10-26] MEDS ORDERED: MAG HYDROX/AL HYDROX/SIMETH 30 ML CUP PO PRN (20:47)
[2019-10-26] MEDS ORDERED: ACETAMINOPHEN TAB 325 MG TAB PO PRN (20:47)
[2019-10-26] MEDS ORDERED: LORazepam 1 MG TAB PO PRN (20:47)
[2019-10-26] MEDS ORDERED: LORazepam 2 MG/ML INJ IM PRN (20:50)
--- NOTE | 2019-10-27 00:05 | P.HPIM ---
History of Present Illness H&P Date: 10/27/19 Patient is a 23-year-old female with a PMH of depression who presented to the ED with depression and suicidal ideation. The patient was thereby admitted to the mental health unit where she was seen and evaluated earlier today. Patient reports that her ongoing social situation involving her children and their father has been worsening, which has led to her depressive thoughts. She reports continued feelings of depression and suicidal ideation though denied any particular plan. She otherwise denied any additional past medical history and denied taking any [id number] medications. She further denied chest pain, shortness of breath, fever, chills, nausea, vomiting, dizziness, or headache. Review of Systems Pertinent positives and negatives as discussed in HPI, a complete review of systems was performed and all other systems are negative. Past Medical History Past Medical History: No Reported History Additional Past Medical History / Comment(s): L. ovarian cyst History of Any Multi-Drug Resistant Organisms: MRSA Date of last positivie culture/infection: 2008 MDRO Source:: left knee Past Surgical History: Orthopedic Surgery Additional Past Surgical History / Comment(s): Left knee surgery after contraction of MRSA. Past Anesthesia/Blood Transfusion Reactions: No Reported Reaction Past Psychological History: Bipolar, Depression Additional Psychological History / Comment(s): Single mother of 2 ages 1 and 3. Tobacco smoker. 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 No international travel. No experience. No animals in the home Smoking Status: Current every day smoker Past Alcohol Use History: Occasional, Rare Past Drug Use History: None Reported - Past Family History Father Family Medical History: Hyperlipidemia, Hypertension Mother Family Medical History: No Reported History Medications and Allergies Home Medications Medication Instructions Recorded Confirmed Type Lurasidone [Latuda] 40 mg PO DAILY 10/26/19 10/26/19 History Norelgestromin/Ethin.estradiol 1 patch TOPICAL Q7D 10/26/19 10/26/19 History [Xulane Patch] Allergies Allergy/AdvReac Type Severity Reaction Status Date / Time No Known Allergies Allergy Verified 10/26/19 21:33 Physical Exam Vitals: Vital Signs Temp Pulse Pulse Resp BP BP Pulse Ox 10/26/19 20:15 99.2 F 82 18 136/71 98 10/26/19 17:00 98.5 F 93 18 138/73 100 Intake and Output 10/26/19 10/26/19 10/27/19 14:59 22:59 06:59 Other: Weight 70.845 kg General: non toxic, no distress, appears at stated age, normal weight Derm: no unusual rashes/lesions no unusual ecchymoses, warm, dry Head: atraumatic, normocephalic, symmetric Eyes: EOMI, no lid lag, anicteric sclera, pupils equal round reactive to light ENT: Nose and ears atraumatic, no thrush, no pharyngeal erythema Neck: No thyromegaly, no cervical lymphadenopathy, trachea midline, supple Mouth: no lip lesion, mucus membranes moist Cardiovascular: S1S2 reg, no murmur, positive posterior tibial pulse bilateral, no edema, capillary refill less than 2 seconds Lungs: CTA bilateral, no rhonchi, no rales , no accessory muscle use Abdominal: soft, nontender to palpation, no guarding, no appreciable organomegaly, normal bowel sounds Ext: no gross muscle atrophy, muscle strength 5 out of 5 in all 4 extremities grossly, no contractures, Neuro: CN II-XI grossly intact, light touch intact all 4 extremities, finger to nose within normal limits, Psych: Alert, oriented, depressed affect Thrombosis Risk Factor Assmnt - Choose All That Apply Any of the Below Risk Factors Present?: Yes Each Factor Represents 1 point: Oral contraceptives or hormone replacement therapy Other Risk Factors: No Other congenital or acquired thrombophilia - If yes, enter type in comment: No Thrombosis Risk Factor Assessment Total Risk Factor Score: 1 Thrombosis Risk Factor Assessment Level: Low Risk Assessment and Plan Plan: Depression with suicidal ideation -As per psychiatry Tobacco abuse, currently using half pack per day -Advised on importance of cessation Thank you for allowing us to participate in the care of this patient. We will follow peripherally. Do not hesitate to contact us with questions. Someone can be reached from the [facility] hospitalist group at all hours of the day at [phone].
[2019-10-27 00:06] VITALS: RESP 16
[2019-10-27] MEDS: MELATONIN 5 MG TABLET PO SCH ×2 (00:33→21:24)
[2019-10-27 08:59] LABS: Basophils % (A) 0 %; Eosinophils # (A) 0.3 k/uL (0-0.7); Eosinophils % (A) 3 %; HCT 39.7 % (34.0-46.0); HGB 13.3 gm/dL (11.4-16.0); Lymphocytes # (A) 3.1 k/uL (1.0-4.8); Lymphocytes % (A) 28 %; MCH 31.3 pg (25.0-35.0); MCHC 33.6 g/dL (31.0-37.0); MCV 93.4 fL (80.0-100.0); Mean Platelet Volume 8.1; Monocytes # (A) 0.4 k/uL (0-1.0); Monocytes % (A) 4 %; Neutrophils # (A) 6.9 k/uL (1.3-7.7); Neutrophils % (A) 63 %; Platelet Count 323 k/uL (150-450); RBC 4.26 m/uL (3.80-5.40); RDW 12.5 % (11.5-15.5)
[2019-10-27 09:09] LABS: ALT 22 U/L (4-34); AST 27 U/L (14-36); African American GFR (CKD) >90 (>60 ml/min/1.73 sqM); Alkaline Phosphatase 49 U/L (38-126); Anion Gap 6 mmol/L; Blood Urea Nitrogen 10 mg/dL (7-17); Calcium 9.3 mg/dL (8.4-10.2); Carbon Dioxide 26 mmol/L (22-30); Chloride 105 mmol/L (98-107); Cholesterol 137 mg/dL (<200); Glucose 117 mg/dL (74-99); HDL Cholesterol 42 mg/dL (40-60); LDL Cholesterol,Calculated 29 mg/dL (0-99); Non-African American GFR(CKD) >90 (>60 ml/min/1.73 sqM); Potassium 4.6 mmol/L (3.5-5.1); Sodium 137 mmol/L (137-145); Total Bilirubin 0.5 mg/dL (0.2-1.3); Total Protein 7.1 g/dL (6.3-8.2); Triglycerides 331 mg/dL (<150)
--- NOTE | 2019-10-27 12:37 | P.HP ---
Psychiatric H&P - . H&P Date: 10/27/19 History & Physical: IDENTIFYING DATA: She is a 23-year-old female admitted to the psychiatric unit voluntarily with complaints of depression and suicidal ideation. HISTORY OF PRESENT ILLNESS: She told the EPS nurse that her primary care provider referred her to the ED. She ran out of medications last and during her primary care appointment she told the provider that she was having thoughts of hurting herself. The thoughts included including drowning herself in a bathtub or overdosing on her prescription medicine. She was distressed during interview as she described her emotional instability, uncontrolled anger and the separation 2 weeks ago from her boyfriend who is also father of her 2 children. When she was about 20 years old she went to her primary care provider with concerns about her emotional distress. After speaking with her and her parents the primary diagnosed a bipolar illness. During the last 2 years he has prescribed several psychotropic medications including Celexa, Lexapro, Prozac, Luvox, Zoloft, Cymbalta, trazodone, bupropion, Lamictal, Tegretol, Trileptal, Abilify, Vrylar, Latuda, Seroquel and Risperdal. She described either intolerance or ineffectiveness of the various medications with the exception of Latuda. She had been taking Latuda since 2019 and described an improved control of her emotions. She described a long history, possibly beginning in early adolescence, of mood instability and mood lability. She has periods lasting no more than one day where she feels good. During these periods she denied inflated self-esteem, pressured speech, racing thoughts, increasing goal-directed activity, or involvement with activities and high potential for painful consequences. She described in decreased need for sleep and a general sense of well-being. These brief episodes of normalcy are followed by prolonged episodes of depression where she described classic symptoms of depression including hopelessness, helplessness, worthlessness, impaired sleep, crying spells, decreased energy, and poor concentration etc. She also described periods of irritability, anger, anxiety and rage. Her emotional instability, anger and rage have caused problems in the long-term relationship and resulted in her boyfriend telling her that he "had enough". 2 weeks prior to admission he told her that he wanted out of the relationship. When he went to work she moved out of the house and has been living with her uncle. She and her share custody of their 2 children. She denied experiencing such issues as fear of abandonment, idealization and devaluation of her long-term relationship, unstable self image, potentially self damaging impulsivity, recurrent suicidal behavior or chronic feelings of emptiness. She has periods of increased anxiety that she has difficulty controlling. She did not describe periods of increased anxiety consistent with panic attack. She denied obsessions or compulsions. She denied the use of alcohol or drugs. She denied experiencing psychotic symptoms such as auditory, visual or olfactory hallucinations, ideas reference, thought insertion, thought broadcasting or thought control. PAST PSYCHIATRIC HISTORY: She has no prior psychiatric hospitalizations. She is never met with a psychiatrist. She met with a therapist at [facility] but described dissatisfaction with the experience. PAST MEDICAL HISTORY: She has no major medical illnesses. ALLERGIES: NO KNOWN DRUG ALLERGIES. SUBSTANCE USE HISTORY: Denied FAMILY PSYCHIATRIC/SUBSTANCE USE HISTORY: Her paternal grandmother have a history of a bipolar illness and her sister has a history of an anxiety disorder LEGAL HISTORY: Denied SOCIAL HISTORY: She was born and raised in intact family. She denied history of emotional, physical or sexual abuse. She graduated from high school. She met her boyfriend in high school and they lived together for 7 years. They have 2 children. She has worked intermittently. Her boyfriend was employed in the construction industry. They're currently and she is living with her uncle. She has supports of her extended family. MENTAL STATUS EXAM:. She presented as a tall casually groomed female who was pleasant on approach. She made eye contact and attended to the interview. She had no distinguishing features or prominent physical abnormalities. She had a labile facial expression. She was alert and oriented to person, place and time. She showed no abnormality of psychomotor activity. She was not agitated, reported less restless or displayed psychomotor retardation. Her speech was spontaneous and consistent with her mood. Affect was labile and she cried intermittently during the interview. She was able to gain control of her emotional distress and provide an adequate history. She denied current suicidal ideation or wishes. She denied homicidal ideation. She expresses feelings of hopelessness and helplessness particularly with regard to her failed relationship and inability to control her emotions. She did not express phobias, ideas reference, paranoid ideation or delusions. Her thinking was abstract and associations were coherent, logical and goal directed. She denied hallucinations and did not appear to be responding to internal stimuli. Global impression of his average. She is aware of illness and need for treatment. STRENGTHS: Good physical health, supportive housing, stable residence WEAKNESSES: Separation from a long-term relationship IMPRESSION: She is a 23-year-old female who gave a long history of emotional instability and anger dyscontrol. She describes periods of elevated mood lasting no more than day so she would've some but not an adequate number of symptoms to suggest hypomania. Her primary complaint is the emotional dyscont rol and prolonged periods of depression. She's been treated by her primary care provider with multiple medications many of which she was unable to tolerate. She would benefit from participation in a dialectic behavioral therapy program. PRINCIPLE DIAGNOSIS: Major depressive disorder recurrent without psychotic features, rule out bipolar disorder type II depressed, rule out borderline personality disorder, rule out persistent depressive disorder RECOMMENDATION: Admitted to psychiatric unit. Safety precautions. Consult medicine for initial physical exam and medical history. animal shelter worker completed initial psychosocial assessment and coordinate discharge and aftercare. Restart Latuda an increased dose to 60 mg daily. We review her psychotropic treatment history and discuss a trial with an alternate mood stabilizer and/or an antidepressant. Provide information about dialectical behavioral therapy and assistance with referrals after discharge. Encourage participation in therapeu tic groups and activities. Evaluate clinical status response to treatment daily basis. Allergies Allergy/AdvReac Type Severity Reaction Status Date / Time No Known Allergies Allergy Verified 10/26/19 21:33 Vital Signs Temp 98.5 F 10/27/19 00:05 Pulse 92 10/27/19 00:05 Resp 16 10/27/19 00:05 BP 122/74 10/27/19 00:05 Pulse Ox 98 10/26/19 20:15 Intake & Output 10/26/19 10/27/19 10/27/19 18:59 06:59 18:59 Weight 72.121 kg 70.845 kg Laboratory Last Values WBC 11.0 k/uL (3.8-10.6) H 10/27/19 08:20 RBC 4.26 m/uL (3.80-5.40) 10/27/19 08:20 Hgb 13.3 gm/dL (11.4-16.0) 10/27/19 08:20 Hct 39.7 % (34.0-46.0) 10/27/19 08:20 MCV 93.4 fL (80.0-100.0) 10/27/19 08:20 MCH 31.3 pg (25.0-35.0) 10/27/19 08:20 MCHC 33.6 g/dL (31.0-37.0) 10/27/19 08:20 RDW 12.5 % (11.5-15.5) 10/27/19 08:20 Plt Count 323 k/uL (150-450) 10/27/19 08:20 Neutrophils % 63 % 10/27/19 08:20 Lymphocytes % 28 % 10/27/19 08:20 Monocytes % 4 % 10/27/19 08:20 Eosinophils % 3 % 10/27/19 08:20 Basophils % 0 % 10/27/19 08:20 Neutrophils # 6.9 k/uL (1.3-7.7) 10/27/19 08:20 Lymphocytes # 3.1 k/uL (1.0-4.8) 10/27/19 08:20 Monocytes # 0.4 k/uL (0-1.0) 10/27/19 08:20 Eosinophils # 0.3 k/uL (0-0.7) 10/27/19 08:20 Basophils # 0.0 k/uL (0-0.2) 10/27/19 08:20 Sodium 137 mmol/L (137-145) 10/27/19 08:20 Potassium 4.6 mmol/L (3.5-5.1) 10/27/19 08:20 Chloride 105 mmol/L (98-107) 10/27/19 08:20 Carbon Dioxide 26 mmol/L (22-30) 10/27/19 08:20 Anion Gap 6 mmol/L 10/27/19 08:20 BUN 10 mg/dL (7-17) 10/27/19 08:20 Creatinine 0.82 mg/dL (0.52-1.04) 10/27/19 08:20 Est GFR (CKD-EPI)AfAm >90 (>60 ml/min/1.73 sqM) 10/27/19 08:20 Est GFR (CKD-EPI)NonAf >90 (>60 ml/min/1.73 sqM) 10/27/19 08:20 Glucose 117 mg/dL (74-99) H 10/27/19 08:20 Calcium 9.3 mg/dL (8.4-10.2) 10/27/19 08:20 Total Bilirubin 0.5 mg/dL (0.2-1.3) 10/27/19 08:20 AST 27 U/L (14-36) 10/27/19 08:20 ALT 22 U/L (4-34) 10/27/19 08:20 Alkaline Phosphatase 49 U/L (38-126) 10/27/19 08:20 Total Protein 7.1 g/dL (6.3-8.2) 10/27/19 08:20 Albumin 4.0 g/dL (3.5-5.0) 10/27/19 08:20 Triglycerides 331 mg/dL (<150) H 10/27/19 08:20 Cholesterol 137 mg/dL (<200) 10/27/19 08:20 LDL Cholesterol, Calc 29 mg/dL (0-99) 10/27/19 08:20 HDL Cholesterol 42 mg/dL (40-60) 10/27/19 08:20 TSH 3.910 mIU/L (0.465-4.680) 10/27/19 08:20 Urine HCG, Qual Not Detected (Not Detectd) 10/26/19 17:44 Urine Opiates Screen Not Detected (NotDetected) 10/26/19 17:44 Ur Oxycodone Screen Not Detected (NotDetected) 10/26/19 17:44 Urine Methadone Screen Not Detected (NotDetected) 10/26/19 17:44 Ur Propoxyphene Screen Not Detected (NotDetected) 10/26/19 17:44 Ur Barbiturates Screen Not Detected (NotDetected) 10/26/19 17:44 U Tricyclic Antidepress Not Detected (NotDetected) 10/26/19 17:44 Ur Phencyclidine Scrn Not Detected (NotDetected) 10/26/19 17:44 Ur Amphetamines Screen Not Detected (NotDetected) 10/26/19 17:44 U Methamphetamines Scrn Not Detected (NotDetected) 06/22/20 17:44 U Benzodiazepines Scrn Not Detected (NotDetected) 10/26/19 17:44 Urine Cocaine Screen Not Detected (NotDetected) 10/26/19 17:44 U Marijuana (THC) Screen Not Detected (NotDetected) 10/26/19 17:44 10/27/19 11:22 10/27/19 12:30
[2019-10-27 13:28] LABS: Appearance,Urine Cloudy (Clear); Bacteria,Urine Occasional /hpf; Bilirubin,Urine Negative (Negative); Blood,Urine Negative (Negative); Color,Urine Light Yellow; Glucose,Urine (UA) Negative (Negative); Ketones,Urine 2+ (Negative); Leukocyte Esterase,Urine Large (Negative); Mucus,Urine Rare /hpf; Nitrite,Urine Negative (Negative); PH, Urine 5.5 (5.0-8.0); Protein,Urine Negative (Negative); RBC,Urine 5 /hpf (0-5); Specific Gravity,Urine 1.011 (1.001-1.035); Squamous Epithelial Cell,Urine 10 /hpf (0-4); Urobilinogen,Urine <2.0 mg/dL (<2.0); WBC,Urine 93 /hpf (0-5)
[2019-10-27 18:47] LABS: Hemoglobin A1C 4.7 % (4.0-6.0)
[2019-10-28 06:54] VITALS: BP 108/64; PULSE 80
[2019-10-28] MEDS ORDERED: LURASIDONE 20 MG TAB PO SCH (09:00)
[2019-10-28 13:43] VITALS: TEMP 98.1
--- NOTE | 2019-10-28 13:52 | P.DS ---
Providers Date of admission: 10/26/19 19:55 Attending physician: Dann Charles MD Consults: 10/26/19 20:47 Consult Physician Routine Consulting Provider: [facility] Consult Reason/Comments: H&P and medical Do you want consulting provider notified?: Yes Primary care physician: Clarisse Avendano - Discharge Diagnosis(es) (1) Suicidal ideation Current Visit: Yes Status: Resolved Priority: Low (2) Persistent depressive disorder with anxious distress, currently moderate Current Visit: Yes Status: Chronic Priority: Medium (3) Borderline personality disorder Current Visit: Yes Status: Chronic Priority: Medium Hospital Course: HISTORY: She is a 23-year-old female admitted to the psychiatric unit voluntarily with complaints of depression and suicidal ideation. She told the EPS nurse that her primary care provider referred her to the ED. She ran out of medications last and during her primary care appointment she told the provider that she was having thoughts of hurting herself. The thoughts included including drowning herself in a bathtub or overdosing on her prescription medicine. She was distressed during interview as she described her emotional instability, uncontrolled anger and the separation 2 weeks ago from her boyfriend who is also father of her 2 children. When she was about 20 years old she went to her primary care provider with concerns about her emotional distress. After speaking with her and her parents the primary diagnosed a bipolar illness. During the last 2 years he has prescribed several psychotropic medications including Celexa, Lexapro, Prozac, Luvox, Zoloft, Cymbalta, trazodone, bupropion, Lamictal, Tegretol, Trileptal, Abilify, Vrylar, Latuda, Seroquel and Risperdal. She described either intolerance or ineffectiveness of the various medications with the exception of Latuda. She had been taking Latuda since 2019 and described an improved control of her emotions. She described a long history, possibly beginning in early adolescence, of mood instability and mood lability. She has periods lasting no more than one day where she feels good. During these periods she denied inflated self-esteem, pressured speech, racing thoughts, increasing goal-directed activity, or involvement with activities and high potential for painful consequences. She described in decreased need for sleep and a general sense of well-being. These brief episodes of normalcy are followed by prolonged episodes of depression where she described classic symptoms of depression including hopelessness, helplessness, worthlessness, impaired sleep, crying spells, decreased energy, and poor concentration etc. She also described periods of irritability, anger, anxiety and rage. Her emotional instability, anger and rage have caused problems in the long-term relationship and resulted in her boyfriend telling her that he "had enough". 2 weeks prior to admission he told her that he wanted out of the relationship. When he went to work she moved out of the house and has been living with her uncle. She and her share custody of their 2 children. She denied experiencing such issues as fear of abandonment, idealization and devaluation of her long-term relationship, unstable self image, potentially self damaging impulsivity, recurrent suicidal behavior or chronic feelings of emptiness. She has periods of increased anxiety that she has difficulty controlling. She did not describe periods of increased anxiety consistent with panic attack. She denied obsessions or compulsions. She denied the use of alcohol or drugs. She denied experiencing psychotic symptoms such as auditory, visual or olfactory hallucinations, ideas reference, thought insertion, thought broadcasting or thought control. he has no prior psychiatric hospitalizations. She is never met with a psychiatrist. She met with a therapist at [facility] but described dissatisfaction with the experience. HOSPITAL COURSE: We admitted to the psychiatric unit under the care of this press writer. We provided a comprehensive biopsychosocial assessment. The etl consultant hospitalist completed initial physical exam and medical history and only diagnosed tobacco abuse. We continued Latuda 60 mg daily and plan to discuss alternatives including an antidepressant. Also provide information about borderline personality disorder and did not collect behavioral therapy. She reported the information and discussed recommendations with her mother. She stated both she and her mother were excited by this recommendation because the issues described for people with borderline personality disorder and the goals of dialectical behavioral therapy will address most of her concerns. She also went so far as to investigate online resources. After she reviewed the information about borderline personality DBT she expressed a marked relief described a marked reduction of her distress and anxiety. She reported feeling more hopeful and less helpless about her emotional distress. At time of discharge she presented as a young casually groomed female who was pleasant on approach. She made eye contact and attended to interview. She had no distinction features are prominent physical abnormalities. She had a bright facial expression. She was alert and oriented to person, place and time. She had no abnormalities of psychomotor activity. Her affect was blunted but stable and appropriate. She denied suicidal ideation and wishes. She denied homicidal ideation. She denied feeling hopeless, helpless or worthless. She did not express ideas reference, paranoid ideation or delusions. Her thinking was abstract and associations were organized, coherent and goal directed. DISPOSITION: Continued Latuda 60 mg daily. She has an intake appointment at [facility] on 11/02/2019 at 10 AM. Our recommendation is enrollment in their dialectic behavioral therapy program. Patient Condition at Discharge: Fair Plan - Discharge Summary Discharge Rx Participant: No New Discharge Prescriptions: New Melatonin 5 mg PO HS #30 tablet Continue Norelgestromin/Ethin.estradiol [Xulane Patch] 1 patch TOPICAL Q7D Lurasidone HCl [Latuda] 60 mg PO DAILY #30 tab Discharge Medication List Norelgestromin/Ethin.estradiol [Xulane Patch] 1 patch TOPICAL Q7D 10/26/19 [History] Lurasidone HCl [Latuda] 60 mg PO DAILY #30 tab 10/28/19 [Rx] Melatonin 5 mg PO HS #30 tablet 10/28/19 [Rx] Follow up Appointment(s)/Referral(s): [facility] [Outside] - 11/02/19 10:00 am (edson/Kelly via phone) Clarisse Avendano DO [Primary Care Provider] - 1-2 days Activity/Diet/Wound Care/Special Instructions: Activity and diet as tolerated. Avoid the use of street drugs and alcohol. Take all medications as prescribed. When you are in need of refills on your medications please contact your medical provider and/or outpatient psychiatrist to have this done. Please go to scheduled outpatient appointment for aftercare treatment. If symptoms return or become worse, call the crisis line at and/or go to the nearest emergency room for evaluation. Discharge Disposition: HOME SELF-CARE
== END 2019-10-28 15:11 | disposition home or self-care (01) | DRG 881 ==
LOC: EC 16:52 → 3MHU 19:55
PROVIDERS: ADMIT Psychiatry & Neurology Psychiatry; ATTEND Psychiatry & Neurology Psychiatry
DX: F34.1 Dysthymic disorder (principal); R45.851 Suicidal ideations; F60.3 Borderline personality disorder; F17.200 Nicotine dependence, unspecified, uncomplicated; F41.0 Panic disorder [episodic paroxysmal anxiety]; Z79.899 Other long term (current) drug therapy; Z86.14 Personal history of Methicillin resistant Staphylococcus aureus infection; Z98.890 Other specified postprocedural states; Z87.42 Personal history of other diseases of the female genital tract; Z71.6 Tobacco abuse counseling; Z91.018 Allergy to other foods; Z82.49 Family history of ischemic heart disease and other diseases of the circulatory system; Z83.438 Family history of other disorder of lipoprotein metabolism and other lipidemia; Z81.8 Family history of other mental and behavioral disorders
CPT/HCPCS: 80053; 80061; 80306; 81001; 81025; 82075; 83036; 84443; 85025; 99285

== ENCOUNTER 2020-09-18 19:29 | Emergency (ER) | payer OTHER ==
[2020-09-18 19:33] VITALS: BP 105/69; PULSE 95; RESP 18; TEMP 98.1
[2020-09-18] MEDS ORDERED: SODIUM CHLORIDE 0.9% 1,000 ML IV STA (19:37)
[2020-09-18] MEDS ORDERED: ONDANSETRON 4 MG/2 ML VIAL IVP STA (19:37)
[2020-09-18] MEDS ORDERED: HYDROmorphone 0.5 MG/0.5 ML SYRINGE IVP STA (19:37)
--- NOTE | 2020-09-18 19:40 | ED ---
General Adult HPI - General Chief complaint: Nausea/Vomiting/Diarrhea Stated complaint: Post Op Vomiting Time Seen by Provider: 09/18/20 19:37 Source: patient Mode of arrival: ambulatory Limitations: no limitations - History of Present Illness Initial comments: Patient is 6 days status post tonsillectomy, and she presents to the ED today complaining of having continued postoperative throat pain. Patient also states that she has not been able to eat or drink much, and she states that she has developed nausea and vomiting today. Patient has pain medication, as well as Zofran at home, but she states that they have not been helping. Patient denies postoperative bleeding. Patient denies fever or chills, headache, chest pain, dyspnea, cough or cold symptoms, abdominal pain, diarrhea or constipation, hematemesis, dysuria or urinary symptoms, decreased urine output, or any other symptoms or complaints. - Related Data Home Medications Medication Instructions Recorded Confirmed Norelgestromin/Ethin.estradiol 1 patch TOPICAL Q7D 10/26/19 10/26/19 [Xulane 150-35 Mcg/Day Patch] Previous Rx's Medication Instructions Recorded Lurasidone HCl [Latuda] 60 mg PO DAILY #30 tab 10/28/19 Melatonin 5 mg PO HS #30 tablet 10/28/19 Allergies Allergy/AdvReac Type Severity Reaction Status Date / Time No Known Allergies Allergy Verified 09/18/20 19:31 Review of Systems ROS Statement: Those systems with pertinent positive or pertinent negative responses have been documented in the HPI. ROS Other: All systems not noted in ROS Statement are negative. Past Medical History Past Medical History: No Reported History Additional Past Medical History / Comment(s): L. ovarian cyst History of Any Multi-Drug Resistant Organisms: MRSA Date of last positivie culture/infection: 2008 MDRO Source:: left knee Past Surgical History: Orthopedic Surgery, Tonsillectomy Additional Past Surgical History / Comment(s): Left knee surgery after contraction of MRSA. Past Anesthesia/Blood Transfusion Reactions: No Reported Reaction Past Psychological History: Bipolar, Depression Smoking Status: Never smoker Past Alcohol Use History: Occasional Past Drug Use History: None Reported - Past Family History Father Family Medical History: Hyperlipidemia, Hypertension Mother Family Medical History: No Reported History General Exam Limitations: no limitations General appearance: alert, in no apparent distress Head exam: Present: atraumatic, normocephalic Eye exam: Present: normal appearance, EOMI ENT exam: Present: mucous membranes moist, other (Postoperative appearance of oropharynx; no oropharyngeal bleeding is noted on examination) Neck exam: Present: other (Trachea is in midline) Respiratory exam: Present: normal lung sounds bilaterally. Absent: respiratory distress, wheezes, rales, rhonchi, stridor Cardiovascular Exam: Present: regular rate, normal rhythm, normal heart sounds, other (Normal radial pulses bilaterally) GI/Abdominal exam: Present: soft. Absent: distended, tenderness, guarding Extremities exam: Absent: tenderness, pedal edema Neurological exam: Present: alert, oriented X3. Absent: motor sensory deficit Psychiatric exam: Present: normal affect, normal mood Skin exam: Present: warm, dry, intact, normal color Course Vital Signs 09/18/20 19:31 Temperature 98.1 F Pulse Rate 95 Respiratory 18 Rate Blood Pressure 105/69 O2 Sat by Pulse 98 Oximetry - Reevaluation(s) Reevaluation #1: 09/18/20 20:28 Patient states that her pain and nausea have improved with ED treatment, and she denies development of any new symptoms while in the ED. Patient remains alert and breathing comfortably with reassuring vital signs. Patient is aware of her test results, and she feels comfortable going home at this time. Patient was counseled about postoperative pain/vomiting and transaminitis. Patient was instructed to follow up closely with her primary care provider for repeat liver function labs, and she was also instructed to follow up closely with her ENT surgeon. Patient feels comfortable to plan. Patient states that she has pain and nausea medication at home. Medical Decision Making - Medical Decision Making Patient symptoms have improved with ED treatment. Patient has not had any vomiting while in the ED. Patient's vital signs are reassuring. Patient's labs are fairly unremarkable except for elevated transaminases. Patient is afebrile and she denies having any abdominal pain. Patient's abdomen is soft and nontender on examination. I suspect a benign etiology of the patient's transaminitis. I have instructed the patient to follow up closely with her primary care provider for repeat LFTs within the next week. Patient was also instructed to follow up closely with her ENT surgeon. Will discharge patient home at this time. - Lab Data Result diagrams: 09/18/20 19:48 09/18/20 19:48 Lab Results 09/18/20 09/18/20 Range/Units 19:48 19:48 WBC 12.0 H (3.8-10.6) k/uL RBC 4.67 (3.80-5.40) m/uL Hgb 14.1 (11.4-16.0) gm/dL Hct 41.6 (34.0-46.0) % MCV 89.1 (80.0-100.0) fL MCH 30.2 (25.0-35.0) pg MCHC 33.9 (31.0-37.0) g/dL RDW 12.5 (11.5-15.5) % Plt Count 340 (150-450) k/uL MPV 7.3 Neutrophils % 77 % Lymphocytes % 15 % Monocytes % 4 % Eosinophils % 2 % Basophils % 0 % Neutrophils # 9.2 H (1.3-7.7) k/uL Lymphocytes # 1.8 (1.0-4.8) k/uL Monocytes # 0.5 (0-1.0) k/uL Eosinophils # 0.2 (0-0.7) k/uL Basophils # 0.0 (0-0.2) k/uL Sodium 137 (137-145) mmol/L Potassium 4.5 (3.5-5.1) mmol/L Chloride 104 (98-107) mmol/L Carbon Dioxide 23 (22-30) mmol/L Anion Gap 10 mmol/L BUN 8 (7-17) mg/dL Creatinine 0.66 (0.52-1.04) mg/dL Est GFR (CKD-EPI)AfAm >90 (>60 ml/min/1.73 sqM) Est GFR (CKD-EPI)NonAf >90 (>60 ml/min/1.73 sqM) Glucose 81 (74-99) mg/dL Calcium 9.8 (8.4-10.2) mg/dL Total Bilirubin 0.9 (0.2-1.3) mg/dL AST 230 H (14-36) U/L ALT 342 H (4-34) U/L Alkaline Phosphatase 236 H (38-126) U/L Total Protein 7.9 (6.3-8.2) g/dL Albumin 4.5 (3.5-5.0) g/dL HCG, Qual Not Detected Disposition Clinical Impression: Postoperative pain, Postoperative vomiting, Transaminitis Disposition: HOME SELF-CARE Condition: Stable Instructions (If sedation given, give patient instructions): Pain Management (ED), Acute Nausea and Vomiting (ED) Additional Instructions: Return to the ER immediately should you develop persistent or bloody vomiting, new or worsening pain, a fever, shortness of breath, feeling dizzy or faint, abdominal pain, or new or worsening symptoms. Follow up closely with your ENT surgeon, as well as your primary care provider. Is patient prescribed a controlled substance at d/c from ED?: No Referrals: Clarisse Avendano DO [Primary Care Provider] - 1-2 days Time of Disposition: 20:38
[2020-09-18 19:54] LABS: Basophils % (A) 0 %; Eosinophils # (A) 0.2 k/uL (0-0.7); Eosinophils % (A) 2 %; HCT 41.6 % (34.0-46.0); HGB 14.1 gm/dL (11.4-16.0); Lymphocytes # (A) 1.8 k/uL (1.0-4.8); Lymphocytes % (A) 15 %; MCH 30.2 pg (25.0-35.0); MCHC 33.9 g/dL (31.0-37.0); MCV 89.1 fL (80.0-100.0); Mean Platelet Volume 7.3; Monocytes # (A) 0.5 k/uL (0-1.0); Monocytes % (A) 4 %; Neutrophils # (A) 9.2 k/uL (1.3-7.7); Neutrophils % (A) 77 %; Platelet Count 340 k/uL (150-450); RBC 4.67 m/uL (3.80-5.40); RDW 12.5 % (11.5-15.5)
[2020-09-18 20:01] LABS: HCG,Qualitative Serum Not Detected
[2020-09-18 20:05] LABS: ALT 342 U/L (4-34); AST 230 U/L (14-36); African American GFR (CKD) >90 (>60 ml/min/1.73 sqM); Albumin 4.5 g/dL (3.5-5.0); Alkaline Phosphatase 236 U/L (38-126); Anion Gap 10 mmol/L; Blood Urea Nitrogen 8 mg/dL (7-17); Calcium 9.8 mg/dL (8.4-10.2); Carbon Dioxide 23 mmol/L (22-30); Chloride 104 mmol/L (98-107); Glucose 81 mg/dL (74-99); Non-African American GFR(CKD) >90 (>60 ml/min/1.73 sqM); Potassium 4.5 mmol/L (3.5-5.1); Sodium 137 mmol/L (137-145); Total Bilirubin 0.9 mg/dL (0.2-1.3); Total Protein 7.9 g/dL (6.3-8.2)
== END 2020-09-18 20:58 | disposition home or self-care (01) ==
LOC: EC 19:29
DX: G89.18 Other acute postprocedural pain (principal); R74.01 Elevation of levels of liver transaminase levels; R11.2 Nausea with vomiting, unspecified; R07.0 Pain in throat; F32.9 Major depressive disorder, single episode, unspecified; Z98.890 Other specified postprocedural states
CPT/HCPCS: 36415; 80053; 85025; 84703; 99284; 96374; 96375; 96361; J2405; J1170

== ENCOUNTER 2020-09-20 16:58 | Emergency (ER) | payer OTHER ==
[2020-09-20 17:13] VITALS: BP 103/62; PULSE 110; RESP 20; TEMP 97.8
--- NOTE | 2020-09-20 17:47 | ED ---
General Adult HPI - General Chief complaint: Nausea/Vomiting/Diarrhea Stated complaint: dehydration Time Seen by Provider: 09/20/20 17:22 Source: patient, RN notes reviewed Mode of arrival: ambulatory Limitations: no limitations - History of Present Illness Initial comments: 24-year-old female patient presents to the emergency room with complaints of so re throat status post tonsillectomy on 09/12/2020, patient states had surgery at [facility] on [address] Mansfield. Patient states today she's had some vomiting 5 but denies fever or diarrhea. Patient also denies any hematemesis. States pain is 4 out of 10. Patient was prescribed hydrocortisone at discharge but was called and told to stop related to elevated liver enzymes. Patient was seen here for pain and was given Dilaudid which only helped for about half an hour and the pain returned. Patient states return today because she feels dehydrated and needs IV fluids. Patient has a history of anxiety and takes Xanax as needed, also has history of MRSA of the left knee in 2008 and endometriosis in 2015. Patient alert and oriented 4, well- appearing. -: days(s) (8) Severity scale (1-10): 4 Quality: aching, constant Consistency: constant Improves with: medication (Hydrocodone or Dilaudid) Worsens with: eating (Swallowing) Associated Symptoms: nausea/vomiting Treatments Prior to Arrival: none - Related Data Previous Rx's Medication Instructions Recorded Cephalexin [Keflex] 500 mg PO Q12HR 10 Days #20 cap 09/20/20 Allergies Allergy/AdvReac Type Severity Reaction Status Date / Time No Known Allergies Allergy Verified 09/20/20 18:15 Last menstrual period: 09/03/20 Patient : No Review of Systems ROS Statement: Those systems with pertinent positive or pertinent negative responses have been documented in the HPI. ROS Other: All systems not noted in ROS Statement are negative. Past Medical History Past Medical History: No Reported History Additional Past Medical History / Comment(s): L. ovarian cyst History of Any Multi-Drug Resistant Organisms: MRSA Date of last positivie culture/infection: 2008 MDRO Source:: left knee Past Surgical History: Orthopedic Surgery, Tonsillectomy Additional Past Surgical History / Comment(s): Left knee surgery after contraction of MRSA. Past Anesthesia/Blood Transfusion Reactions: No Reported Reaction Past Psychological History: Bipolar, Depression Smoking Status: Never smoker Past Alcohol Use History: Occasional Past Drug Use History: None Reported - Past Family History Father Family Medical History: Hyperlipidemia, Hypertension Mother Family Medical History: No Reported History General Exam Limitations: no limitations General appearance: alert, in no apparent distress Head exam: Present: atraumatic, normocephalic, normal inspection Eye exam: Present: normal appearance, PERRL, EOMI. Absent: scleral icterus, conjunctival injection, periorbital swelling ENT exam: Present: mucous membranes moist, other (Bilateral tonsillar exudates white in color) Neck exam: Present: normal inspection, full ROM. Absent: tenderness, meningismus, lymphadenopathy, thyromegaly Respiratory exam: Present: normal lung sounds bilaterally. Absent: respiratory distress, wheezes, rales, rhonchi, stridor Cardiovascular Exam: Present: tachycardia, normal heart sounds. Absent: JVD GI/Abdominal exam: Present: soft, normal bowel sounds. Absent: distended, tenderness, guarding, rebound, rigid Rectal exam: Present: deferred Back exam: Present: normal inspection, full ROM. Absent: tenderness, CVA tenderness (R), CVA tenderness (L) Neurological exam: Present: alert, oriented X3, CN II-XII intact Psychiatric exam: Present: normal affect, normal mood Skin exam: Present: warm, dry, intact, normal color. Absent: rash Course Vital Signs 09/20/20 17:09 Temperature 97.8 F Pulse Rate 110 H Respiratory 20 Rate Blood Pressure 103/62 O2 Sat by Pulse 98 Oximetry Medical Decision Making - Medical Decision Making Patient states seen primary care doctor yesterday and was told that the scabs from the tonsillectomy had fallen off. Rapid strep screen is negative however with tonsillar exudate, foul smelling breath, throat pain and nausea vomiting, will treat patient for strep pharyngitis. Patient has an appointment with her p ostop physician September 26. Will discharge patient on Keflex. Patient directed to take Motrin for pain is was told by her doctor that her liver function tests were elevated. Case discussed with Dr. Santos - Lab Data Lab Results 09/20/20 Range/Units 17:45 Group A Strep Rapid Negative (Negative) Disposition Clinical Impression: Strep pharyngitis Clinical Impression: (Ruled Out): Pharyngitis Disposition: HOME SELF-CARE Condition: Fair Instructions (If sedation given, give patient instructions): Acute Nausea and Vomiting (ED), Strep Throat (ED) Prescriptions: Cephalexin [Keflex] 500 mg PO Q12HR 10 Days #20 cap Is patient prescribed a controlled substance at d/c from ED?: No Referrals: Clarisse Avendano DO [Primary Care Provider] - 1-2 days Time of Disposition: 18:27
[2020-09-20] MEDS ORDERED: SODIUM CHLORIDE 0.9% 1,000 ML IV STA (17:54)
== END 2020-09-20 18:57 | disposition home or self-care (01) ==
LOC: EC 16:58
DX: J02.0 Streptococcal pharyngitis (principal); Z86.14 Personal history of Methicillin resistant Staphylococcus aureus infection; Z82.49 Family history of ischemic heart disease and other diseases of the circulatory system; Z83.49 Family history of other endocrine, nutritional and metabolic diseases
CPT/HCPCS: 87081; 87430; 99283

== ENCOUNTER 2021-03-06 21:21 | Emergency (ER) | payer OTHER ==
[2021-03-06 21:26] VITALS: TEMP 97.9
[2021-03-06 22:08] LABS: Appearance,Urine Cloudy (Clear); Bacteria,Urine Occasional /hpf; Bilirubin,Urine Negative (Negative); Blood,Urine Large (Negative); Color,Urine Light Yellow; Glucose,Urine (UA) Negative (Negative); Ketones,Urine Negative (Negative); Leukocyte Esterase,Urine Moderate (Negative); Nitrite,Urine Negative (Negative); Protein,Urine Negative (Negative); RBC,Urine 12 /hpf (0-5); Squamous Epithelial Cell,Urine 2 /hpf (0-4); Urobilinogen,Urine <2.0 mg/dL (<2.0); WBC,Urine 23 /hpf (0-5)
--- NOTE | 2021-03-06 23:41 | US ---
EXAMINATION TYPE: Transabdominal DATE OF EXAM: 03/06/2021 11:05 PM COMPARISON: US, This is first US for this . CLINICAL HISTORY: pain. Pain and vaginal bleeding. . EXAM PERFORMED: Transvaginal (TV) and Transabdominal (TA) EXAM MEASUREMENTS: GESTATIONAL AGE / DATING Physician Established: Not yet established. Dates by LMP: 4 weeks/5 days) EDC: 11/08/2021 Dates by First Scan: This is first scan. Dates by Current Scan for: No IUP seen at this time. MATERNAL ANATOMY Uterus: 8.4 x 5.5 x 4.5 cm. Anteverted. Subcentimeter anechoic areas seen in cervix. Right Ovary: 3.6 x 2.6 x 2.1 cm. Complex area with vascularity seen: 1.7 x 1.3 x 1.5 cm. Left Ovary: 3.0 x 1.6 x 1.3 cm. Follicles seen. Post CDS / Adnexa: Appear wnl. Presence of free fluid: None seen. Presence of corpus luteal cyst: Possible within right ovary- complex area with vascularity seen as me ntioned above: 1.7 x 1.3 x 1.5 cm. GESTATION / SURVEY IUP: No IUP seen at this time. Date of LMP: 02/01/2021 Beta HcG (if available): 8.8 mIU/mL IMPRESSION: The uterus is empty. There is possible corpus luteum cyst. No suspicious adnexal mass.
--- NOTE | 2021-03-07 00:09 | ED ---
Female Urogenital HPI - General Chief complaint: Vaginal Bleeding Stated complaint: 4 Wks preg,Vaginal Bleeding Time Seen by Provider: 03/06/21 22:20 Source: patient, family, RN notes reviewed Mode of arrival: ambulatory Limitations: no limitations - History of Present Illness Initial comments: 25-year-old female presents emergency Department chief complaint of vaginal bleeding early . Patient states she recently found out on she was . Patient states she started having spotting which has progressed. Patient states that she has no pain. Patient is A0. Patient states she did have lab work with her primary care physician but is not all the results. Patient offers no other complaints. - Related Data Previous Rx's Medication Instructions Recorded Cephalexin [Keflex] 500 mg PO Q12HR 10 Days #20 cap 09/20/20 Allergies Allergy/AdvReac Type Severity Reaction Status Date / Time No Known Allergies Allergy Verified 03/06/21 21:26 Review of Systems ROS Statement: Those systems with pertinent positive or pertinent negative responses have been documented in the HPI. ROS Other: All systems not noted in ROS Statement are negative. Past Medical History Past Medical History: No Reported History Additional Past Medical History / Comment(s): L. ovarian cyst History of Any Multi-Drug Resistant Organisms: MRSA Date of last positivie culture/infection: 2008 MDRO Source:: left knee Past Surgical History: Orthopedic Surgery, Tonsillectomy Additional Past Surgical History / Comment(s): Left knee surgery after contraction of MRSA. Past Anesthesia/Blood Transfusion Reactions: No Reported Reaction Past Psychological History: Bipolar, Depression Smoking Status: Former smoker Past Alcohol Use History: Occasional Past Drug Use History: None Reported - Past Family History Father Family Medical History: Hyperlipidemia, Hypertension Mother Family Medical History: No Reported History General Exam Limitations: no limitations General appearance: alert, in no apparent distress Head exam: Present: atraumatic, normocephalic, normal inspection Respiratory exam: Present: normal lung sounds bilaterally. Absent: respiratory distress, wheezes, rales, rhonchi, stridor Cardiovascular Exam: Present: regular rate, normal rhythm, normal heart sounds. Absent: systolic murmur, diastolic murmur, rubs, gallop, clicks GI/Abdominal exam: Present: soft, normal bowel sounds. Absent: distended, tenderness, guarding, rebound, rigid Course Vital Signs 03/06/21 21:23 Temperature 97.9 F Pulse Rate 79 Respiratory 18 Rate Blood Pressure 111/64 O2 Sat by Pulse 100 Oximetry Medical Decision Making - Medical Decision Making Patient is O+ blood type and does not require RhoGAM. Patient's hCG is 8.8. This is concerning with bleeding that there is most likely miscarriage patient will have repeat hCG. Return parameters were discussed. - Lab Data Lab Results 03/06/21 03/06/21 Range/Units 21:36 21:36 HCG, Quant 8.8 mIU/mL Urine Color Light Yellow Urine Appearance Cloudy H (Clear) Urine pH 7.0 (5.0-8.0) Ur Specific Roy 1.010 (1.001-1.035) Urine Protein Negative (Negative) Urine Glucose (UA) Negative (Negative) Urine Ketones Negative (Negative) Urine Blood Large H (Negative) Urine Nitrite Negative (Negative) Urine Bilirubin Negative (Negative) Urine Urobilinogen <2.0 (<2.0) mg/dL Ur Leukocyte Esterase Moderate H (Negative) Urine RBC 12 H (0-5) /hpf Urine WBC 23 H (0-5) /hpf Ur Squamous Epith Cells 2 (0-4) /hpf Urine Bacteria Occasional H (None) /hpf Disposition Clinical Impression: Threatened miscarriage Disposition: HOME SELF-CARE Condition: Stable Instructions (If sedation given, give patient instructions): Threatened Miscarriage (ED) Additional Instructions: Please return to the Emergency Department if symptoms worsen or any other concer ns. Is patient prescribed a controlled substance at d/c from ED?: No Referrals: Clarisse Avendano DO [Primary Care Provider] - 1-2 days Time of Disposition: 00:09
[2021-03-07 00:21] VITALS: BP 112/84; PULSE 74; RESP 20
== END 2021-03-07 00:20 | disposition home or self-care (01) ==
LOC: EC 21:21
DX: O20.0 Threatened abortion (principal); Z3A.01 Less than 8 weeks gestation of pregnancy; F31.9 Bipolar disorder, unspecified; Z87.891 Personal history of nicotine dependence; Z72.89 Other problems related to lifestyle
CPT/HCPCS: 36415; 76801; 76817; 81001; 84702; 87086; 99284

== ENCOUNTER 2021-07-22 18:00 | Emergency (ER) | payer OTHER ==
[2021-07-22 18:35] VITALS: BP 103/69; PULSE 106; RESP 20; TEMP 101.4
[2021-07-22 18:58] LABS: Appearance,Urine Cloudy (Clear); Bacteria,Urine Occasional /hpf; Bilirubin,Urine Negative (Negative); Blood,Urine Negative (Negative); Color,Urine Yellow; Glucose,Urine (UA) Negative (Negative); Ketones,Urine Negative (Negative); Leukocyte Esterase,Urine Large (Negative); Mucus,Urine Rare /hpf; Nitrite,Urine Negative (Negative); Protein,Urine Trace (Negative); RBC,Urine 3 /hpf (0-5); Specific Gravity,Urine 1.029 (1.001-1.035); Squamous Epithelial Cell,Urine 16 /hpf (0-4); Urobilinogen,Urine <2.0 mg/dL (<2.0); WBC,Urine 56 /hpf (0-5)
== END 2021-07-22 20:11 | disposition left against medical advice (07) ==
LOC: EC 18:00
DX: Z53.21 Procedure and treatment not carried out due to patient leaving prior to being seen by health care provider (principal); R05.9 Cough, unspecified; Z20.822 Contact with and (suspected) exposure to COVID-19
CPT/HCPCS: 81001; 81025; 87086; 87635; 99499

== ENCOUNTER 2021-12-13 16:08 | Emergency (ER) | payer OTHER ==
[2021-12-13 16:33] VITALS: TEMP 98.3
[2021-12-13] MEDS ORDERED: LIDOCAINE 1% INJ 10MG/ML (20 ML MDV) SQ ONE (18:43)
--- NOTE | 2021-12-13 18:46 | ED ---
Wound/Laceration HPI - General Chief Complaint: Wound/Laceration Stated Complaint: cut under L thumb nail Time Seen by Provider: 12/13/21 18:32 Source: patient, RN notes reviewed Mode of arrival: ambulatory Limitations: no limitations - History of Present Illness Initial Comments: Patient is a 26-year-old female presents to the emergency room after cutting her left thumb while leveling a cake at work today. She reports that she was utilizing a large knife to level a cake when the knife slipped slicing her thumb. She states that her vaccinations including tetanus are up-to-date. She complains of pain and bleeding at the site of her laceration otherwise she denies any other complaints or concerns at this time. She denies any chest pain, shortness of breath, abdominal pain, nausea, vomiting, fevers or chills. Her only other significant past medical history is of left ovarian cyst. She is currently 23 weeks with her third child without any known complications. She is not on any blood thinners but is taking her vitamin as prescribed. - Related Data Previous Rx's Medication Instructions Recorded Cephalexin [Keflex] 500 mg PO Q12HR 10 Days #20 cap 09/20/20 Allergies Allergy/AdvReac Type Severity Reaction Status Date / Time No Known Allergies Allergy Verified 12/13/21 16:33 Review of Systems ROS Statement: Those systems with pertinent positive or pertinent negative responses have been documented in the HPI. ROS Other: All systems not noted in ROS Statement are negative. Past Medical History Past Medical History: No Reported History Additional Past Medical History / Comment(s): L. ovarian cyst History of Any Multi-Drug Resistant Organisms: MRSA Date of last positivie culture/infection: 2008 MDRO Source:: left knee Past Surgical History: Orthopedic Surgery, Tonsillectomy Additional Past Surgical History / Comment(s): Left knee surgery after contraction of MRSA. Past Anesthesia/Blood Transfusion Reactions: No Reported Reaction Past Psychological History: Bipolar, Depression Smoking Status: Former smoker Past Alcohol Use History: Occasional Past Drug Use History: None Reported - Past Family History Father Family Medical History: Hyperlipidemia, Hypertension Mother Family Medical History: No Reported History General Exam Limitations: no limitations General appearance: alert, in no apparent distress Head exam: Present: atraumatic, normocephalic, normal inspection Eye exam: Present: normal appearance, PERRL, EOMI. Absent: scleral icterus, conjunctival injection, periorbital swelling ENT exam: Present: normal exam, mucous membranes moist Neck exam: Present: normal inspection Respiratory exam: Absent: respiratory distress, accessory muscle use Extremities exam: Absent: pedal edema, joint swelling Left Hand Wrist exam: Present: full ROM, tenderness, laceration, other (Laceration to left thumb approximately 2 inches in length spanning the curvature of the thumb near the nail bed but not penetrating the nail bed. Closed with nylon sutures without competitions.). Absent: swelling Course Vital Signs 12/13/21 16:30 Temperature 98.3 F Pulse Rate 95 Respiratory 20 Rate Blood Pressure 117/69 O2 Sat by Pulse 98 Oximetry Procedures - Laceration Laceration #1 Site: hand Size (cm): 2 Description: linear Depth: simple, single layer Anesthetic Used: lidocaine 1% Anesthesia Technique: local infiltration Pre-repair: wound explored, irrigated extensively Type of Sutures: nylon Size of Sutures: 4-0 Number of Sutures: 4 Technique: simple, interrupted Patient Tolerated Procedure: well, no complications Medical Decision Making - Medical Decision Making No blunt force trauma or concern for foreign object and laceration. No need for diagnostic imaging or laboratory studies. Clean wound with out concern of contamination no need for antibiotic therapy. Wound closed with 4-0 nylon sutures after cutting back nail tip to expose wound further. Sutures 4 placed without complication. Due to current state advised to utilize Tylenol as needed for pain. Encouraged to keep wound clean and dry and follow-up with primary care provider in 7-10 days for removal of sutures. Advised to follow up sooner if any signs or symptoms of infection. Case discussed with Dr. Springer. Disposition Clinical Impression: Laceration Disposition: HOME SELF-CARE Condition: Stable Instructions (If sedation given, give patient instructions): Care For Your Stitches (ED), Laceration (ED) Additional Instructions: Please keep wound clean and dry. Have sutures removed in 7-10 days. Please follow-up with your primary care provider. Due to please use Tylenol only for pain as needed. Please return to the Emergency Department if symptoms worsen or any other concerns. Is patient prescribed a controlled substance at d/c from ED?: No Referrals: Clarisse Avendano DO [Primary Care Provider] - 1-2 days Time of Disposition: 19:37
[2021-12-13 19:47] VITALS: BP 114/72; PULSE 65; RESP 16
== END 2021-12-13 19:47 | disposition home or self-care (01) ==
LOC: EC 16:08
DX: S61.012A Laceration without foreign body of left thumb without damage to nail, initial encounter (principal); F31.9 Bipolar disorder, unspecified; Z87.891 Personal history of nicotine dependence; W26.0XXA Contact with knife, initial encounter; Y99.0 Civilian activity done for income or pay
CPT/HCPCS: 99282; 12001; J2001

== ENCOUNTER 2022-03-25 12:02 | Inpatient (IN) | payer OTHER ==
[2022-03-25] MEDS: LACTATED RINGERS 1,000 ML IV SCH (14:20)
[2022-03-25] MEDS ORDERED: TERBUTALINE 1 MG/ML VIAL SQ PRN (14:21)
[2022-03-25] MEDS ORDERED: LIDOCAINE 0.5% (PF) 5 MG/ML (50 ML SDV) SQ PRN (14:21)
[2022-03-25 14:32] LABS: Basophils % (A) 0 %; Eosinophils # (A) 0.1 k/uL (0-0.7); Eosinophils % (A) 1 %; HCT 40.8 % (34.0-46.0); HGB 13.6 gm/dL (11.4-16.0); Lymphocytes % (A) 14 %; MCH 29.9 pg (25.0-35.0); MCHC 33.3 g/dL (31.0-37.0); MCV 89.8 fL (80.0-100.0); Mean Platelet Volume 8.2; Monocytes # (A) 0.8 k/uL (0-1.0); Monocytes % (A) 5 %; Neutrophils # (A) 11.1 k/uL (1.3-7.7); Neutrophils % (A) 77 %; Platelet Count 298 k/uL (150-450); RBC 4.54 m/uL (3.80-5.40); RDW 13.7 % (11.5-15.5); WBC 14.4 k/uL (3.8-10.6)
[2022-03-25] MEDS ORDERED: BUTORPHANOL 1 MG/ML 1 ML VIAL IV PRN (15:38)
--- NOTE | 2022-03-25 15:43 | P.HPOB ---
History of Present Illness H&P Date: 03/25/22 Chief Complaint: 37-3/7 weeks, active labor the patient is a 26-year-old 3 para 2001 admitted at 37-3/7 weeks as established by last menstrual period and confirmed by second trimester ultrasound. She is admitted in early active labor having made cervical change in triage with a category 1 heart rate tracing. Her has been uncomplicated and group B strep status is negative. Obstetrical history: 3 para 2001 with 2 term vaginal deliveries without complications. Current statistics are listed in history of present illness. EDC of 04/11/2022 was established by last menstrual period and confirmed by second trimester ultrasound. Laboratory workup demonstrates a blood type of O+ with a negative antibody screen. Rubella status is immune. The remainder of laboratory workup was within normal limits 1 hour Glucola was normal and group B strep status is negative. Gynecologic history: unremarkable with no history of infections to include STDs. Review of Systems review of systems is confined to history of present illness. Past Medical History Past Medical History: No Reported History Additional Past Medical History / Comment(s): L. ovarian cyst History of Any Multi-Drug Resistant Organisms: MRSA Date of last positivie culture/infection: 2008 MDRO Source:: left knee Past Surgical History: Orthopedic Surgery, Tonsillectomy Additional Past Surgical History / Comment(s): Left knee surgery after contracti on of MRSA. Past Anesthesia/Blood Transfusion Reactions: No Reported Reaction Past Psychological History: Bipolar, Depression Additional Psychological History / Comment(s): Single mother of 2 ages 1 and 3. Tobacco smoker. 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 No international travel. No experience. No animals in the home Smoking Status: Never smoker Past Alcohol Use History: Occasional Past Drug Use History: None Reported - Past Family History Father Family Medical History: Hyperlipidemia, Hypertension Mother Family Medical History: No Reported History Medications and Allergies Home Medications Medication Instructions Recorded Confirmed Type No Known Home Medications 03/25/22 03/25/22 History Allergies Allergy/AdvReac Type Severity Reaction Status Date / Time No Known Allergies Allergy Verified 03/25/22 12:13 Exam Vital Signs Temp Pulse Resp BP Pulse Ox 03/25/22 12:12 96.5 F L 84 18 119/75 97 Intake and Output 03/25/22 03/25/22 03/25/22 06:59 14:59 22:59 Other: Weight 72.575 kg in general, this is a well-developed, well-nourished white female in no acute distress. Her heart has a regular rhythm and rate without murmur. Her lungs are clear to auscultation bilaterally in all white. Her abdomen is gravid, nondistended, has normal active bowel sounds, is soft, nontender, without any palpable masses aside from uterine fundus. Her extremities are without any cyanosis, clubbing, or edema and are nontender to palpation bilaterally. Digital cervical examination demonstrates her cervix to be 5-6 cm dilated, approximately 50-60% effaced, with the vertex in presentation at -2-3 station. Artificial rupture of membranes is carried out demonstrating clear fluid. Results Result Diagrams: 03/25/22 14:27 Abnormal Lab Results - Last 24 Hours (Table) 03/25/22 Range/Units 14:27 WBC 14.4 H (3.8-10.6) k/uL Neutrophils # 11.1 H (1.3-7.7) k/uL Assessment and Plan (1) Active labor at term Current Visit: Yes Status: Acute Code(s): [id number] - SNOMED Code(s): 50655191 Plan: the patient is admitted for active management of labor. She is undergone art ificial rupture of membranes and will continue to have close maternal and surveillance and expectant management will be practiced. Should she made no progress over the next hour or 2, Pitocin will be augmented. She is a good candidate for either IV, epidural, or nitrous analgesia, whichever she may choose. I would anticipate normal spontaneous vaginal delivery Several hours.
[2022-03-25] MEDS ORDERED: fentaNYL (PF) 50 MCG/ML 5 ML AMP ONE (17:49)
[2022-03-25] MEDS ORDERED: ROPIVACAINE 5 MG/ML 20 ML AMPULE ONE (17:49)
[2022-03-25] MEDS ORDERED: SODIUM CHLORIDE 0.9% 100 ML BAG ONE (17:49)
[2022-03-25] MEDS ORDERED: OXYTOCIN 30 UNITS/500 ML NS 30 UNIT in SALINE 1 500ML.BAG IV SCH ×2 (18:45→21:00)
[2022-03-25] MEDS ORDERED: ACETAMINOPHEN TAB 325 MG TAB PO PRN (20:51)
[2022-03-25] MEDS ORDERED: HYDROcodone/APAP 7.5-325MG 1 EACH TAB PO PRN (20:51)
[2022-03-25] MEDS ORDERED: SIMETHICONE 80 MG CHEWABLE PO PRN (20:51)
[2022-03-25] MEDS ORDERED: HYDROcodone/APAP 5-325MG 1 EACH TAB PO PRN (20:51)
[2022-03-25] MEDS ORDERED: LANOLIN CREAM 5 GM TUBE TOPICAL PRN (20:51)
[2022-03-25] MEDS ORDERED: diphenhydrAMINE 25 MG CAP PO PRN (20:51)
[2022-03-25] MEDS ORDERED: IBUPROFEN 600 MG TAB PO PRN (20:51)
[2022-03-25] MEDS ORDERED: ZOLPIDEM 5 MG TAB PO PRN (20:51)
[2022-03-25] MEDS ORDERED: diphenhydrAMINE 50 MG/ML 1 ML VIAL IVP PRN ×2 (20:51)
[2022-03-25] MEDS ORDERED: diphenhydrAMINE 50 MG CAP PO PRN (20:51)
[2022-03-25] MEDS ORDERED: HYDROCORTISONE 2.5% RECTAL CREAM 30 GM TUBE RECTAL PRN (20:51)
[2022-03-25] MEDS ORDERED: BENZOCAINE/MENTHOL SPRAY 1 GM/SPRAY AEROSOL TOPICAL PRN (20:51)
--- NOTE | 2022-03-25 20:57 | P.PROBDLV ---
Vaginal Delivery Note - . Vaginal Delivery Note: the patient is a 26-year-old 3 para 2001 admitted at 37-4/7 weeks by good dating parameters. She is admitted with documented cervical change in early active labor having change from 2 cm in the office to 4 cm in presentation and then 5 cm in triage. Her was uncomplicated and group B strep status is negative. On labor and delivery, she is making slow progress and underwent artificial rupture of membranes for clear fluid at which time the presentation was thought to be vertex. She progressed through the active phase of labor and had an epidural catheter placed for analgesia as well as Pitocin augmentation started. She then progressed to complete. At the time that I presented the patient's station was noted to be +2 to +3 and was identified to be breech at that time. Given the low station in her previous 2 deliveries, decision was made to proceed with vaginal breech delivery. She pushed over the course of 2 contractions to a normal spontaneous vaginal delivery, breech presentation in the dang breech presentation with standard breech maneuvers without difficulty. She was delivered of a viable 6 lbs. 0 oz. baby girl with Apgars of 9 at 1 minute and 9 at 5 minutes. The placenta was delivered spontaneously, intact, and grossly normal with a grossly normal three-vessel cord inserted approximately 2-3 synovators from the margin of the placental disc. There were no lacerations of the perineum, vagina, or cervix. There were no complications aside from the unrecognized breech presentation with no issues with standard breech delivery. Estimated blood loss for the case was approximately 100 mL. All sponge, instrument, needle counts were correct. Both mother and are resting comfortably in recovery.
[2022-03-25 22:21] VITALS: RESP 16
[2022-03-26] MEDS: LACTATED RINGERS 1,000 ML IV SCH (01:56)
[2022-03-26 07:33] LABS: Basophils % (A) 0 %; Eosinophils # (A) 0.1 k/uL (0-0.7); Eosinophils % (A) 1 %; HCT 31.2 % (34.0-46.0); HGB 10.7 gm/dL (11.4-16.0); Lymphocytes # (A) 2.1 k/uL (1.0-4.8); Lymphocytes % (A) 16 %; MCH 30.8 pg (25.0-35.0); MCHC 34.4 g/dL (31.0-37.0); MCV 89.5 fL (80.0-100.0); Mean Platelet Volume 9.3; Monocytes # (A) 0.8 k/uL (0-1.0); Monocytes % (A) 6 %; Neutrophils # (A) 9.5 k/uL (1.3-7.7); Neutrophils % (A) 73 %; Platelet Count 213 k/uL (150-450); RBC 3.49 m/uL (3.80-5.40); RDW 13.6 % (11.5-15.5); WBC 12.9 k/uL (3.8-10.6)
[2022-03-26] MEDS: SENNOSIDES-DOCUSATE SODIUM 1 EACH TAB PO SCH ×2 (07:44→22:19)
--- NOTE | 2022-03-26 09:46 | P.DS ---
Providers Date of admission: 03/25/22 14:05 Expected date of discharge: 03/26/22 Attending physician: Mara Adams Primary care physician: Stated None - Discharge Diagnosis(es) (1) Active labor at term Current Visit: Yes Status: Acute (2) Dang breech presentation Current Visit: Yes Status: Acute (3) Normal spontaneous vaginal delivery Current Visit: Yes Status: Acute Hospital Course: This is a 26 yo G4 now P3013 that presented to labor and delivery with complaints of regular painful contractions. Patient was noted be 4 cm upon admission. Patient progressed through labor eventually becoming uncomfortable and requesting epidural placement. Epidural was placed without difficulty by the anesthesia department. Patient progressed to complete upon pushing was noted to be in a dang breech presentation. Patient was delivered in a breech presentation at 2031, weight of 6 lbs. 0 oz. No laceration was appreciated after delivery. Patient has done well . On this day #1 she is ambulating and voiding without difficulty. She is tolerating a regular diet without nausea or vomiting. She states her pain is well-controlled. She is considering discharge home today. Plan - Discharge Summary New Discharge Prescriptions: No Action No Known Home Medications Discharge Medication List No Known Home Medications 03/25/22 [History] Follow up Appointment(s)/Referral(s): Mara Adams DO [Doctor of Osteopathic Medicine] - 4 Weeks Patient Instructions/Handouts: Vaginal Delivery (GEN), Vaginal Delivery (DC) Discharge Disposition: HOME SELF-CARE
[2022-03-26 23:58] VITALS: PULSE 71
[2022-03-27 08:04] VITALS: BP 115/76; TEMP 97.5
[2022-03-27] MEDS: SENNOSIDES-DOCUSATE SODIUM 1 EACH TAB PO SCH (08:07)
--- NOTE | 2022-03-27 08:39 | P.PNOBGVD ---
Subjective - Subjective Principal diagnosis: day #2, status post normal spontaneous vaginal delivery, breech Interval history: Patient is doing well. Patient did end up staying an additional day secondary to bilirubin levels in her . She states the bili blanket was discontinued this morning and the plan and we drawing anywhere from 12-2 today. She states she is feeling well overall. She is fatigue as her infant was up most of the night. Her lochia is minimal. She states her pain is well-controlled. She is tolerating a regular diet without nausea or vomiting. Patient reports: Reports appetite normal, Reports voiding normally, Reports pain well controlled, Reports ambulating normally : doing well Objective - Latest Vital Signs Latest vital signs: Vital Signs Temp Pulse Resp BP Pulse Ox 03/27/22 08:00 97.5 F L 71 16 115/76 98 03/26/22 23:57 98.4 F 71 16 123/76 98 03/26/22 16:00 97.5 F L 81 109/74 99 Intake and Output 03/26/22 03/27/22 03/27/22 22:59 06:59 14:59 Other: # Voids 2 1 - Exam Extremities: Present: normal, edema Abdomen: Present: normal appearance, soft Uterus: Present: normal, firm Assessment and Plan (1) Active labor at term Current Visit: Yes Status: Acute Code(s): NDP7858 - SNOMED Code(s): 77636717 (2) Antonio breech presentation Current Visit: Yes Status: Acute Code(s): O32.1XX0 - MATERNAL CARE FOR BREECH PRESENTATION, UNSP SNOMED Code(s): 28011765 (3) Normal spontaneous vaginal delivery Current Visit: Yes Status: Acute Code(s): O80 - ENCOUNTER FOR FULL-TERM UNCOMPLICATED DELIVERY SNOMED Code(s): 08208923 Plan: Patient is doing well . We'll plan discharge home later today. Discharge instructions are reviewed.
== END 2022-03-27 12:54 | disposition home or self-care (01) | DRG 807 ==
LOC: FBPOP 12:02 → 4FBP 14:05
PROVIDERS: ADMIT Obstetrics & Gynecology; ATTEND Obstetrics & Gynecology Obstetrics
PROC: 10E0XZZ Delivery of Products of Conception, External Approach (ICD-10-PCS; principal; 2022-03-25)
PROC: 4A0HXCZ Measurement of Products of Conception, Cardiac Rate, External Approach (ICD-10-PCS; 2022-03-25)
PROC: 10907ZC Drainage of Amniotic Fluid, Therapeutic from Products of Conception, Via Natural or Artificial Opening (ICD-10-PCS; 2022-03-25)
PROC: 3E033VJ Introduction of Other Hormone into Peripheral Vein, Percutaneous Approach (ICD-10-PCS; 2022-03-25)
DX: O32.1XX0 Maternal care for breech presentation, not applicable or unspecified (principal); Z37.0 Single live birth; F17.210 Nicotine dependence, cigarettes, uncomplicated; O99.334 Smoking (tobacco) complicating childbirth; O99.344 Other mental disorders complicating childbirth; Z3A.37 37 weeks gestation of pregnancy; Z86.14 Personal history of Methicillin resistant Staphylococcus aureus infection; F31.9 Bipolar disorder, unspecified
CPT/HCPCS: 59025; 85025; 86850; 86900; 86901; 99213

== ENCOUNTER → 2022-12-05 | Outpatient (CLI) | payer OTHER ==
--- NOTE | 2022-12-05 11:33 | XR ---
EXAMINATION TYPE: XR Hip Complete LT DATE OF EXAM: 12/05/2022 COMPARISON: NONE HISTORY: Pain TECHNIQUE: 2 views submitted FINDINGS: There is no evidence of erosive change or acute fracture. Tiny calcification along the lateral margin of the acetabulum. This can be associated with chronic acetabular labral tear. Mild sclerosis of the pubic symphysis. IMPRESSION: 1. No evidence of acute fracture or dislocation.
--- NOTE | 2022-12-05 11:34 | XR ---
EXAMINATION TYPE: XR knee complete LT DATE OF EXAM: 12/05/2022 COMPARISON: 12/02/2016 HISTORY: Pain TECHNIQUE: Three views are submitted. FINDINGS: Joint spaces are preserved. Osseous structures are intact. No acute fracture seen. Trace of fluid is noted personally. IMPRESSION: 1. No acute fracture or dislocation.
== END | disposition home or self-care (01) ==
LOC: RADXRMAIN 11:03
PROVIDERS: ATTEND Emergency Medicine
DX: S80.02XA Contusion of left knee, initial encounter (principal); S70.02XA Contusion of left hip, initial encounter; X58.XXXA Exposure to other specified factors, initial encounter
CPT/HCPCS: 73502

== ENCOUNTER → 2022-12-12 | Outpatient (CLI) | payer OTHER ==
--- NOTE | 2022-12-13 11:32 | MR ---
EXAMINATION TYPE: MR knee LT wo con DATE OF EXAM: 12/12/2022 COMPARISON: None HISTORY: Left knee pain due to fall at work. TECHNIQUE: Multiplanar, multisequence images of the knee is performed without IV contrast. FINDINGS: MEDIAL MENISCUS: Anterior and posterior horns are intact without tear. LATERAL MENISCUS: Anterior and posterior horns are intact without tear. CRUCIATE LIGAMENTS: The anterior and posterior cruciate ligaments are intact and unremarkable. COLLATERAL LIGAMENTS: The medial collateral ligament and lateral collateral ligament complex are inta ct and unremarkable. EXTENSOR MECHANISM: Visualized quadriceps and patellar tendons are intact. EFFUSION: No significant suprapatellar joint effusion. POPLITEAL CYST: No popliteal/feldman cyst. TRICOMPARTMENT SPACES: Intact CARTILAGE: Intact BONE MARROW SIGNAL: No focal abnormal marrow signal is appreciated. OTHER: No additional significant abnormality is appreciated. IMPRESSION: No significant abnormality appreciated to account for the patient's symptoms.
== END | disposition home or self-care (01) ==
LOC: RADMRIMAIN 17:03
PROVIDERS: ATTEND Emergency Medicine
DX: S80.02XD Contusion of left knee, subsequent encounter (principal); S70.02XD Contusion of left hip, subsequent encounter; Y99.0 Civilian activity done for income or pay